=== PATIENT | male | born 1965 | race African-American/Black ===

== ENCOUNTER 2021-01-31 11:12 | Emergency (ER) | payer OTHER, MEDICARE ==
[~2021-01-31] VITALS: Ht 177.8 cm; Wt 77.1 kg
[~2021-01-31 11:12] MED LIST: BACLOFEN10 MG PO; CENTRAL VITE F1 EACH PO; GABAPENTIN100 MG PO; INDOMETHACIN50 MG PO; KEFLEX500 MG PO; LISINOPRIL10 MG PO; LORCET 5-325 M1 EACH PO; MOBIC7.5 MG PO; NORCO 5-325 TA1 EACH PO; PREDNISONE20 MG PO
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
[2021-01-31] MEDS ORDERED: ALLOPURINOL100 MG PO (13:02)
[2021-01-31] MEDS ORDERED: IBU600 MG PO (14:09)
== END 2021-01-31 14:43 | disposition home or self-care (01) ==
LOC: ED 11:12
DX: S83.91XA Sprain of unspecified site of right knee, initial encounter (principal); M54.5 Low back pain; V03.90XA Pedestrian on foot injured in collision with car, pick-up truck or van, unspecified whether traffic or nontraffic accident, initial encounter; I10 Essential (primary) hypertension; F17.200 Nicotine dependence, unspecified, uncomplicated; Z79.899 Other long term (current) drug therapy
CPT/HCPCS: 99283

== ENCOUNTER 2021-05-31 23:07 | Emergency (ER) | payer MEDICARE, OTHER ==
[~2021-05-31] VITALS: Ht 177.8 cm; Wt 74.8 kg
[~2021-05-31 23:07] MED LIST changes: +ALLOPURINOL100 MG PO; +IBU600 MG PO
[2021-06-01] MEDS ORDERED: PROTONIX40 MG PO (01:13)
== END 2021-06-01 01:23 | disposition home or self-care (01) ==
LOC: ED 23:07
DX: K29.00 Acute gastritis without bleeding (principal); I10 Essential (primary) hypertension; F17.200 Nicotine dependence, unspecified, uncomplicated
CPT/HCPCS: 80053; 81001; 83690; 85025; 99284

== ENCOUNTER 2022-02-27 16:34 | Emergency (ER) | payer OTHER ==
[~2022-02-27] VITALS: Ht 177.8 cm; Wt 73.4 kg
[~2022-02-27 16:34] MED LIST changes: +PROTONIX40 MG PO
[2022-02-27] MEDS ORDERED: ALLOPURINOL100 MG PO (17:33)
[2022-02-27] MEDS ORDERED: ZOLOFT50 MG PO (17:34)
--- NOTE | 2022-03-01 14:23 | EKG ---
[facility] [address] [place], [place] [address] Signed Normal sinus rhythm Left axis deviation Inferior infarct , age undetermined Abnormal ECG No previous ECGs available Confirmed by NICOLE HERMOSILLO MD ([id number]) on 03/01/2022 2:22:58 PM Electronically Signed By: NICOLE HERMOSILLO MD 03/01/221422 PATIENT NAME: RUBIO CHILDRESS Electrocardiogram DATE OF : 61 PHYSICIAN: NICOLE HERMOSILLO MD REPORT #: [id number] REPORT IS CONFIDENTIAL AND NOT TO BE RELEASED WITHOUT AUTHORIZATION
== END 2022-02-27 17:53 | disposition left against medical advice (07) ==
LOC: ED 16:34
DX: G45.9 Transient cerebral ischemic attack, unspecified (principal); F15.10 Other stimulant abuse, uncomplicated; I10 Essential (primary) hypertension; F17.200 Nicotine dependence, unspecified, uncomplicated; Z79.899 Other long term (current) drug therapy; Z20.822 Contact with and (suspected) exposure to COVID-19
CPT/HCPCS: 36415; 70450; 70496; 70498; 71045; 80053; 85025; 85060; 85610; 85730; 93005; 93010; 99285-25; A9270; C9803; G0480; U0003

== ENCOUNTER 2022-03-03 11:11 | Inpatient (IN) | payer MEDICARE, OTHER ==
[~2022-03-03] VITALS: Ht 177.8 cm; Wt 72.0 kg
[~2022-03-03 11:11] MED LIST changes: +ZOLOFT50 MG PO
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
--- NOTE | 2022-03-03 18:58 | NUR ---
CHAPIN IS LAYING IN BED WATCHING TV. I&O CHARTED VITALS CHARTED. CALL LIGHT WITHIN REACH. NO FURTHER TASKS AT THIS TIME.
--- NOTE | 2022-03-03 19:10 | NUR ---
REPORT RECEIVED FROM KEDAR JORGE. pt RESTING IN BED. CALL LIGHT IN REACH. pt DENIES ANY NEEDS AT THIS TIME.
--- NOTE | 2022-03-03 20:40 | NUR ---
pt RESTING IN BED AWAKE. ASSISTED TO RESOSITION IN BED. pt DENIES PAIN. ASSESSMENT COMPLETE. RIGHTS SIDED FACIAL DROOP, RIGHT ARM AND RIGHT LEG WEAKNESS NOTED. pt STATES SENSATION INTACT. ALERT AND ORIENTED TO ALL. DENTURES IN CUP. MRI FORM COMPLETE. VSS. HR SR ON TELE 3. CALL LIGHT IN REACH. pt DEMONSTRATES USE. URINAL NEXT TO pt PER REQUEST.
--- NOTE | 2022-03-03 21:47 | NUR ---
2 pa. LINKING MACHINE OPERATORKEDAR HERRON AND THIS MILK TESTER HELPED PATIENT GET UP TO USE THE BEDSIDE COMMODE. PATIENT HAS A SOFT SMALL BOWEL MOVEMENT. PATIENT ABLE TO PIVOT AND TOLERATED WELL. PATIENT IS BACK IN BED. WARM BLANKET PROVIDED. CALL LIGHT WITHIN REACH. BED ALARM ON FOR SAFETY.
--- NOTE | 2022-03-03 23:39 | NUR ---
CALL LIGHT ANSWERED. 2PA TO BSC FOR LOOSE BM, INCONTINENCE OF BM IN ATTENDS. SMALL UNMEASURED VOID MIXED WITH STOOL IN BSC. 2PA BACK TO BED. ATTENDS ON. CALL LIGHT IN REACH. ALL RAILS UP PER pt REQUEST. IVF INFUSING WNL.
--- NOTE | 2022-03-04 02:15 | NUR ---
pt SLEEPING, AWAKENS TO VOICE. DENIES TOILETING NEEDS. IVF INFUSING WNL. ASSESSMENT COMPLETE. NEURO CHECK UNCHANGED, pt WITH SLURRED SPEECH, RIGHT SIDED WEAKNESS. ALERT AND ORIENTED TO ALL. VSS. BLADDER SCAN >333 MLS AT THIS TIME, DENIES NEED TO VOID. URINAL IN REACH. CALL LIGHT NEXT TO pt.
--- NOTE | 2022-03-04 05:08 | NUR ---
CHECKED ON pt. RESTING IN BED WITH EYES CLOSED, BREATHING EQUAL AND UNLABORED. NO DISTRESS NOTED.
--- NOTE | 2022-03-04 06:16 | NUR ---
pt SLEEPING, AWAKENS TO VOICE. 100 ML VOID IN URINAL NOTED. pt INCONTINENT OF URINE AND BROWN SOFT/LIQUID STOOL. ATTENDS AND CHUX CHANGED, 2PA. VSS. IVF INFUSING WNL. CALL LIGHT IN REACH. BED ALARM ON FOR SAFETY.
--- NOTE | 2022-03-04 07:37 | NUR ---
Patient back from MRI at this time. Continuous IV fluids restarted per provider order. Bed alarm intact. Patient has no needs at this time. Personal supplies and call light within reach.
--- NOTE | 2022-03-04 08:18 | NUR ---
wilmer is in bed sitting up for meal. am cares done. call light within reach. no further tasks at this time.
--- NOTE | 2022-03-04 10:15 | NUR ---
Patient tachy at this time, heart rate 122bpm per tele. Patient sleeping at this time with no notable distress. TORB from Dr. Capellan to do a stat EKG at this time and vital signs. EKG order placed, RT notified.
--- NOTE | 2022-03-04 10:30 | NUR ---
Patient incontinent of stool. Jessica care done at this time.
--- NOTE | 2022-03-04 10:47 | NUR ---
Dr. Capellan updated on most recent vital signs.
--- NOTE | 2022-03-04 11:29 | NUR ---
Patient's heart rate increased to 141bpm per tele. In to see pt, patient attempting to void, appears to be bearing down as he voids. Bladder scan done, 301ml noted. Patient denies sob and or chest pain. Heart rate drecreased to 120's post void.
--- NOTE | 2022-03-04 13:12 | NUR ---
Moon placed using sterile technique. Urojet used for comfort. Immediate return of clear yellow urine noted. Patient tolerated well.
[2022-03-04] MEDS ORDERED: MOTRIN IB200 MG PO (14:25)
--- NOTE | 2022-03-04 14:28 | NUR ---
MED REC COMPLETE
--- NOTE | 2022-03-04 14:30 | NUR ---
CHAPIN IS LAYING IN BED WATCHING TV. I&OS AND VITALS HAVE BEEN CHARTED. CALL LIGHT WITHIN REACH. NO FURTHER TASKS AT THIS TIME.
--- NOTE | 2022-03-04 15:00 | NUR ---
Discussed pt with Qi from [facility] and then also with Momo from [facility]. Discussed possible placement and pts needs. I will call [facility] rehab to check if they would accept this pt with a homeless status. Momo suggest LU eval to see if this pt could qualify for penitentiary medicaid and placement. Called [facility] and left a message asking if they have this pt on any services and if he would qualify for penitentiary medicaid. Called and spoke with Rhina from [facility] rehab. They will have a bed open the beginning of next week. Depending on circumstances, they do accept pt's that are homeless, if they are willing to dc homeless when rehab is completed. She requests I send the chart.
--- NOTE | 2022-03-04 15:39 | EKG ---
[facility] [address] [place], [place] [address] Signed Sinus bradycardia Left axis deviation Inferior infarct (cited on or before 27-FEB-2022) Abnormal ECG When compared with ECG of 27-FEB-2022 17:17, No significant change was found Confirmed by NICOLE HERMOSILLO MD ([id number]) on 03/04/2022 3:39:13 PM Electronically Signed By: NICOLE HERMOSILLO MD 03/04/22 1539 PATIENT NAME: RUBIO CHILDRESS Electrocardiogram DATE OF : 61 PHYSICIAN: NICOLE HERMOSILLO MD REPORT #: [id number] REPORT IS CONFIDENTIAL AND NOT TO BE RELEASED WITHOUT AUTHORIZATION
--- NOTE | 2022-03-04 15:39 | EKG ---
[facility] [address] [place] [address] Signed Sinus tachycardia Left axis deviation Inferior-posterior infarct (cited on or before 27-FEB-2022) Abnormal ECG When compared with ECG of 03-MAR-2022 11:57, (Unconfirmed) Vent. rate has increased BY 64 BPM Confirmed by NICOLE HERMOSILLO MD ([id number]) on 03/04/2022 3:39:23 PM Electronically Signed By: NICOLE HERMOSILLO MD 03/04/22 1539 PATIENT NAME: RUBIO CHILDRESS Electrocardiogram DATE OF : 61 PHYSICIAN: NICOLE HERMOSILLO MD REPORT #: [id number] REPORT IS CONFIDENTIAL AND NOT TO BE RELEASED WITHOUT AUTHORIZATION
--- NOTE | 2022-03-04 16:53 | NUR ---
CASE MANAGEMENT NOTE CHART FAXED TO [facility] AFTER SPEAKING WITH ANISA. ANISA STATED THEY WILL HAVE A ROOM AVAILABLE NEXT WEEK AND WILL REVIEW CHART FOR PLACEMENT.
--- NOTE | 2022-03-04 18:12 | NUR ---
CHAPIN IS LAYING IN BED WATCHING TV. I&O AND VITALS CHARTED. CALL LIGHT IN REACH. NO FURTHER TASKS AT THIS TIME
--- NOTE | 2022-03-04 18:22 | NUR ---
Patient in bed eating dinner, no distress. Patient denies pain and or discomfort. No needs at this time, personal supplies and call light within reach.
--- NOTE | 2022-03-04 19:10 | NUR ---
REPORT RECEIVED FROM KEDAR PETTIT. pt RESTING IN BED WITH EYES CLOSED. BREATHING EQUAL AND UNLABORED. CALL LIGHT NEXT TO pt.
--- NOTE | 2022-03-04 21:30 | NUR ---
ASSISTED KEDAR BAKER. V/S AND I&O'S COMPLETED. JOE AND DUTTA CARE DONE. CHANGED CHUX AND ATTENDS WET FROM DUTTA LEAKING. ORAL CARE DONE. UPPER DENTURE SOAKED WITH CLEANSER IN A CONTAINER. WARM BLANKET PROVIDED. CALL LIGHT AND SIDE TABLE CLOSED BY. BED ALARM ON FOR SAFETY.
--- NOTE | 2022-03-04 21:39 | NUR ---
pt SLEEPING, AWAKENS TO VOICE. ALERT AND ORIENTED TO ALL. ASSESSMENT COMPLETE. RIGHT SIDED WEAKNESS, SLURRED SPEECH NOTED. DUTTA CARE COMPLETE. DUTTA CATHETER LEAKING URINE. BALLOON REINFLATED, 9 MLS NOTED IN BALLOON. ATTENDS CHUX AND GOWN CHANGED, PARTIAL BED BATH. ASSISTED TO REPOSITION. ORAL CARE COMPLETE. CRANBERRY JUICE PROVIDED. PO FLUIDS ENCOURAGED. pt DEMONSTRATES BEDDING CONTROLS, CALL LIGHT. IV SITE FLUSHED WNL, SL. CALL LIGHT IN REACH.
--- NOTE | 2022-03-04 23:40 | NUR ---
CHECKED ON pt. RESTING IN BED WITH EYES CLOSED. NO DISTRESS NOTED. DUTTA DRAINING YELLOW/ORANGE URINE.
--- NOTE | 2022-03-05 01:54 | NUR ---
CHECKED ON pt. RESTING IN BED WITH EYES CLOSED. BREATHING UNLABORED. HR 71, SR ON TELE 3. DUTTA DRAINING YELLOW URINE.
--- NOTE | 2022-03-05 04:22 | NUR ---
CHECKED ON pt, RESTING IN BED, EYES CLOSED, BREATHING UNLABORED. HR 85 ON TELE 3, SR. NO DISTRESS NOTED.
--- NOTE | 2022-03-05 06:10 | NUR ---
pt AWAKENS TO VOICE. ATTENDS DRY. ASSESSMENT COMPLETE. NEURO CHECK UNCHANGED. pt ASSISTED TO REPOSITION IN BED. PILLOW UNDER RIGHT HIP, BETWEEN LEGS. DUTTA EMPTIED. VSS. CALL LIGHT IN REACH.
--- NOTE | 2022-03-05 08:30 | NUR ---
REPORT RECEIVED FROM NIGHT RN AND PT. CARE RESUMED. PT. IS ALERT AND ORIENTED TO ALL. HE DENIES PAIN. RIGHT SIDE WEAKNESS IN RUE AND RLE. RIGHT FACIAL DROOP AND SLURRING PRESENT. PT. AMBULATED WITH 2PA, FWW AND WAS UNSTEADY WITH RIGHT FOOT DRAG. IV WNL AND FLUSHES WELL. DISCUSSED SAFETY, SHOWER, MEDS, AND POC. LEFT RESTING WITH CALL LIGHT IN REACH.
--- NOTE | 2022-03-05 09:42 | NUR ---
CHAPIN IS UP IN CHAIR. VITALS AND I&O CHARTED. CALL LIGHT WITHIN REACH. NO FURTHER TASKS AT THIS TIME
--- NOTE | 2022-03-05 10:10 | NUR ---
TELEMETRY SHOWS HR IS 150'S. IN THE ROOM. ADMIN TWO DOSES OF IVP LOPRESSOR, 5MG. EKG PERFORMED. HR DOWN TO 110'S. OTHER VITALS STABLE. 2PA AND FWW TO AMBULATE FROM CHAIR TO BED. WILL CONTINUE TO MONITOR. PT. LEFT RESTING WITH CALL LIGHT IN REACH.
--- NOTE | 2022-03-05 10:54 | NUR ---
Pravint got a bed bath. after the pravint asked for pudding. call light within reach. no further tasks at this time.
--- NOTE | 2022-03-05 13:15 | NUR ---
CHAPIN IS LAYING IN BED WATCHING TV. I&O AND VITALS CHARTED. CALL LIGHT WITH IN REACH. NO FURTHER TASKS AT THIS TIME
--- NOTE | 2022-03-05 14:00 | NUR ---
Received phone message from Rhina at [facility] rehab. They declined this pt. due to his meth use and homelessness.
--- NOTE | 2022-03-05 14:15 | NUR ---
PT ASLEEP, DID NOT DISTURB. WILL FOLLOW
--- NOTE | 2022-03-05 15:34 | NUR ---
ROUNDING ON PT. HE IS RESTING IN BED AND DENIES PAIN. PT. BROUGHT PUDDING AND ASSISTED WITH REPOSITIONING. LEFT RESTING WITH CALL LIGHT IN REACH.
--- NOTE | 2022-03-05 19:10 | NUR ---
SHIFT REPORT RECEIVED FROM CHEIKH HUA AT BEDSIDE. pt AWAKE AND RESTING IN BED, ASPIRATION PRECAUTIONS IN PLACE WITH HOB ELEVATED. NO NEEDS OR CONCERNS VERBALIZED, CALL LIGHT IN REACH. BED ALARM REMAINS ON FOR SAFETY.
--- NOTE | 2022-03-05 20:25 | NUR ---
call light on, pt requests strawberry milk, rn to be in room shortly, vitals taken, charles emptied, no further needs at this time
--- NOTE | 2022-03-05 20:45 | NUR ---
ASSESSMENT COMPLETE, SCHEDULED PO OPRESSOR CRUSHED AND ADMINISTERED WITH PUDDING- SEE EMAR. NO ISSUES SWALLOWING NOTED, pt ALREADY ASSESSED BY [facility] [place] ELEVATED AND ASPIRATION PRECAUTIONS IN PLACE. GREATER WEAKENSS TO RIGHT SIDE COMPARED TO LEFT SIDE. RIGHT SIDED DROOP REMAINS NOTED, pt SPEAKS VERY QUIET AND SOFT. SOME SLURRED SPEECH REMAINS NOTED- NO CHANGE SINCE START OF SHIFT. CATHET PATENT, CATH CARE DONE. DRY ATTENDS IN PLACE. pt ABLE TO ASSIST WITH POSTION CHANGES. NO FURTHER NEEDS, CALL LIGHT IN REACH. BED ALARM ON FOR SAFETY.
--- NOTE | 2022-03-05 23:38 | NUR ---
pt RESTING IN BED, EYES CLOSED. RR EVEN AND UNLABORED. NO DISTRESS NOTED. REMAINS ON RA, TELE#[address], HR 60'S SINUS RHYTHM. CALL LIGHT REMAINS IN REACH AND BED ALARM ON FOR SAFETY.
--- NOTE | 2022-03-06 00:15 | NUR ---
IN TO PROVIDE PT WITH SOME CRANBERRY JUICE PER REQUEST, PT ALSO ABLE TO REPOSITION SELF A LITTLE AND WILL CALL IF MORE ASSISTANCE NEEDED, NO FURTHER NEEDS AT THIS TIME
--- NOTE | 2022-03-06 01:42 | NUR ---
pt RESTING IN BED WITH EYES CLOSED, RR EVEN AND UNLABORED. NO DISTRESS NOTED, TELE#[address] HR RANGING FROM 59BPM TO MID/UPPER 60'S BPM. NO DISTRESS NOTED. CALL LIGHT IN REACH.
--- NOTE | 2022-03-06 02:00 | NUR ---
IN TO CHECK BP/HR/RR FOR RN, RESULTS PROVIDED TO RN, PT IS COMORTABLE WITH POSITIONING, NO FURTHER NEEDS AT THIS TIME
--- NOTE | 2022-03-06 02:22 | NUR ---
SCHEDULED PO CARDIAC MEDICATION GIVEN, SEE EMAR. MED CRUSHED AND GIVEN W/ PUDDING. NO ISSUES SWALLOWING NOTED. ASSESSMENT FINDINGS UNCHANGED, VSS. TELE#3 SR, HR REGULAR WITH AUSCULTATION, RATE 60'S. CMS INTACT, pt ABLE TO TELL WHICH SIDE IS BEING TOUCHED REGARDING BUE AND BLE W/ SENSATION. WEAKNSS REMAINS NOTED ON RIGHT SIDE. PUPILS ROUND AND REACTIVE/EQUAL TO LIGHT. BED ALARM ON FOR SAFETY, pt SIISTED WITH REPOSITIONING, BUT ALSO ABLE TO CHANGE POSITIONS ON OWN. CALL LIGHT IN REACH.
--- NOTE | 2022-03-06 02:36 | NUR ---
2G SODIUM DIET ADDED TO CURRENT DIET ORDER PER MD ORDERS UNDER SWALLOW EVAL. GAS TRUCK DRIVERKEDAR LAFLEUR UPDATED.
--- NOTE | 2022-03-06 04:26 | NUR ---
pt AWAKE AND RESTING IN BED, ON RA. RR EVEN AND UNLABORED. NO DISTRESS NOTED. pt CURRENTLY RESTING ON HIS RIGHT SIDE IN BED. DENIES NEED FOR ASSISTANCE REGARDING POSTION CHANGES AT THIS TIME, CALL LIGHT IN REACH.
--- NOTE | 2022-03-06 05:50 | NUR ---
IN TO GET VITALS, EMTIED DUTTA, REPOSITIONED PILLOWS TO BOTH HIPS, STRAWBERRY ENSURE PROVIDED, FRESH ICE WATER WELL, BED ALARM IN PLACE, NO FURTHER NEEDS AT THIS TIME
--- NOTE | 2022-03-06 05:58 | NUR ---
ROUNDED ON pt, pt BOOSTED IN BED AND ASSISTED WITH FLOATING HIPS. BED ALARM RESUMED. FOREHEAD AGAIN DIAPHORETIC, BUT pt REMAINS AFEBRILE. OTHER VSS, HR INCREASED AT THIS TIME AND TACHY, HR CURRENTLY 104-108 ON TELE#3- SINUS TACH. NO CHANGES TO OVERALL pt APPEARANCE. NO ACUTE CHANGES NOTED WITH NEURO CHECK- WILL CONTINUE TO MONITOR. CALL LIGHT IN REACH.
--- NOTE | 2022-03-06 08:50 | NUR ---
Called and left a message with [facility] requesting their fax number as per [facility], they will accept pts who have substance abuse.
--- NOTE | 2022-03-06 09:00 | NUR ---
REPORT RECEIVED FROM NIGHT RN AND PT. CARE RESUMED. PT IS ALERT AND ORIENTED TO ALL. DENIES PAIN. 2PA WITH FWW FROM BED TO CHAIR AND IS UNSTEADY WITH RIGHT FOOT DRAG. RIGHT SIDE WEAKNESS IN RUE AND RLE REMAIN UNCHANGED. RIGHT FACIAL DROOP PRESENT. IV WNL AND FLUSHES. DISCUSSED POC, SAFETY AND MEDS. LEFT RESTING WITH CALL LIGHT IN REACH.
--- NOTE | 2022-03-06 09:34 | NUR ---
PT. ASSISTED WITH ANSWERING PHONE AND CLEARING LUNCH TRAY.
--- NOTE | 2022-03-06 10:06 | NUR ---
PATIENT AWAKE IN CHAIR. VITALS AND I&OS CHARTED. DUTTA EMPTIED. 2PA WITH GAIT BELT AND FWW PATIENT BACK TO BED PER REQUEST. PILLOW UNDER R ARM, WASHCLOTH IN R HAND. BOTH BED RAILS UP PER PATIENT REQUEST. CALL LIGHT AND PERSONAL PHONE IN EASY REACH
--- NOTE | 2022-03-06 10:40 | NUR ---
Faxed Face sheet, covid test,progress notes, H&P, med list, PT/OT/ST notes to [facility] in [place] and [facility] in [place]. Pt has been declined by [facility], [facility], and [facility]. [facility] does not have rooms.
--- NOTE | 2022-03-06 11:01 | NUR ---
TELEMETRY REMOVED PER ORDER. PT. DENIES NEEDS AT THIS TIME. DUTTA ADJUSTED PT. WAS LYING ON IT. LEFT RESTING WITH CALL LIGHT IN REACH.
--- NOTE | 2022-03-06 12:00 | NUR ---
Spoke with Gilbert. Updated IP rehab declined placement. I have sent his chart to SNFs in the state requesting placement for rehab, but have not received any replys. He states he is willing to go wherever to get placement for rehab.
--- NOTE | 2022-03-06 12:20 | NUR ---
PT LAYING IN BED, PREAKS VERY QUIETLY, BUT ANSWERS ON POINT. PT VERY POLITE, FACIAL DROOP NOTED. GAVE ENCOUAGEMENT, PRAYED WITH PT. WILL FOLLOW
--- NOTE | 2022-03-06 12:40 | NUR ---
Attempted to call [facility] x 2 and unable to reach to set up phone eval.
--- NOTE | 2022-03-06 13:15 | EKG ---
[facility] [address] [place], [place] [address] Signed Sinus tachycardia Left axis deviation Inferior infarct (cited on or before 27-FEB-2022) Abnormal ECG When compared with ECG of 05-MAR-2022 08:59, (Unconfirmed) Serial changes of Inferior infarct present Confirmed by NICOLE HERMOSILLO MD ([id number]) on 03/06/2022 1:15:21 PM Electronically Signed By: NICOLE HERMOSILLO MD 03/06/22 1315 PATIENT NAME: RUBIO CHILDRESS Electrocardiogram DATE OF : 61 PHYSICIAN: NICOLE HERMOSILLO MD REPORT #: [id number] REPORT IS CONFIDENTIAL AND NOT TO BE RELEASED WITHOUT AUTHORIZATION
--- NOTE | 2022-03-06 13:15 | EKG ---
[facility] [address] [place], [place] [address] Signed Sinus tachycardia Inferior infarct (cited on or before 27-FEB-2022) Abnormal ECG When compared with ECG of 04-MAR-2022 09:06, No significant change was found Confirmed by NICOLE HERMOSILLO MD ([id number]) on 03/06/2022 1:15:14 PM Electronically Signed By: NICOLE HERMOSILLO MD 03/06/22 1315 PATIENT NAME: RUBIO CHILDRESS Electrocardiogram DATE OF : 61 PHYSICIAN: NICOLE HERMOSILLO MD REPORT #: [id number] REPORT IS CONFIDENTIAL AND NOT TO BE RELEASED WITHOUT AUTHORIZATION
--- NOTE | 2022-03-06 13:15 | EKG ---
[facility] [address] [place], [place] [address] Signed Sinus tachycardia Inferior infarct (cited on or before 27-FEB-2022) Abnormal ECG When compared with ECG of 05-MAR-2022 08:56, (Unconfirmed) No significant change was found Confirmed by NICOLE HERMOSILLO MD ([id number]) on 03/06/2022 1:15:18 PM Electronically Signed By: NICOLE HERMOSILLO MD 03/06/22 1315 PATIENT NAME: RUBIO CHILDRESS Electrocardiogram DATE OF : 61 PHYSICIAN: NICOLE HERMOSILLO MD REPORT #: [id number] REPORT IS CONFIDENTIAL AND NOT TO BE RELEASED WITHOUT AUTHORIZATION
--- NOTE | 2022-03-06 14:45 | NUR ---
VITALS AND I&OS CHARTED. PATIENT EATING PUDDING, ABLE TO FEED HIMSELF WITH LEFT HAND WITH LITTLE ASSISTANCE. CALL LIGHT IN EASY REACH
--- NOTE | 2022-03-06 14:55 | NUR ---
Spoke with Kimi Prakash. She is unable to speak with Gilbert today as she has appointment at 3 pm. She asks I call after 0830 am on Wednesday.
--- NOTE | 2022-03-06 15:13 | NUR ---
PT. ASSISTED BY 2 STAFF AND FWW TO BSC. SMALL BM SMEAR. PT. ASSISTED BACK TO BED AND LEFT RESTING WITH CALL LIGHT IN REACH.
--- NOTE | 2022-03-06 17:03 | NUR ---
PT. USED CALL LIGHT APPROPRIATELY FOR ASSISTANCE TO BSC. PIVOTED FROM BED TO BSC WITH 2PA AND FWW. TOLERATED WELL AND HAD A LARGE BM. ASSISTED TO CHAIR. LEFT RESTING WITH CALL LIGHT IN REACH.
--- NOTE | 2022-03-06 19:00 | NUR ---
SHIFT REPORT RECEIVED FROM DAYSHIFT RN MELITA AT BEDSIDE. pt RESTING QUIETLY IN BED, AWAKE. DENIES NEEDS OR CONCERNS. ON RA, RR EVEN AND UNLABORED. BED ALARM ON FOR SAFETY AND CALL LIGHT IN REACH. BOARD UPDATED.
--- NOTE | 2022-03-06 20:05 | NUR ---
in to get vitals, ensure provided, boosted pt in bed with rn, no further needs at this time
--- NOTE | 2022-03-06 20:17 | NUR ---
ASSESSMENT COMPLETE, SCHEDULED CARDIAC MED GIVEN (SEE EMAR). VSS, HR TACHY AT 105, REGULAR WITH AUSCULTATION. NICOTINE PATCH ALSO REMOVED. BED ALARM ON FOR SAFETY AND CALL LIGHT IN REACH. MED GIVEN WHOLE AND SWALLOWED EASILY. NEURO ASSESSMENT COMPLETE, pt A/OX4. WEAKNESS TO RIGHT SIDE REMAISN NOTED ALONG WITH RIGHT FACIAL DROOP AND SOME SLURRED SPEECH. pt SPEAKS VERY QUIET AT BASELINE. SNACK PROVIDED AND HOB ELEVATED. NO FURTHER NEEDS AT THIS TIME. DUTTA CATHETER REMAISN PATENT, CATH CARE RECENTLY DONE BY ALF CASTRO.
--- NOTE | 2022-03-06 23:30 | NUR ---
ROUNDED ON pt, pt AWAKE AND RESTING IN BED. ON RA, RR EVEN AND UNLABORED. DENIES NEEDS OR CONCERNS AT THIS TIME, CALL LIGHT IN REACH AND BED ALARM ON FOR SAFETY.
--- NOTE | 2022-03-07 01:40 | NUR ---
IN TO CHECK ON PT, PT WAS TURNING OVER AND SET OFF ALARM, ENSURE PROVIDED, NO FURTHER NEEDS
--- NOTE | 2022-03-07 02:13 | NUR ---
pt CONITNUES TO REST IN BED, EYES CLOSED. RR EVEN AND UNLABORED. NO DISTRESS NOTED. CALL LIGHT IN REACH. BED ALARM REMAISN ON FOR SAFETY.
--- NOTE | 2022-03-07 03:08 | NUR ---
ROUNDED ON pt, pt RESTING QUIETLY IN BED, AWOKE TO VOICE. DENIES NEEDS, BED ALARM REMAINS ON. DUTTA CATHETER PATENT, VOIDING QS. pt FULLY ORIENTED, DENIES PAIN AND NAUSEA. NO FURTHER NEEDS OR CONCERNS VERBALIZED, WILL CONITNUE TO MONITOR. HR WNL, REGULAR WITH AUSCULTATION.
--- NOTE | 2022-03-07 06:11 | NUR ---
VSS AND I&O'S COMPLETE. BED ALARM ON FOR SAFETY AND CALL LIGHT IN REACH. NO SKIN BREAKDOWN NOTED TO BUTTOCKS, pt ABLE TO REPOSITION SELF IN BED. NO CHANGES TO NEURO ASSESSMENT.
--- NOTE | 2022-03-07 09:30 | NUR ---
Patient awake sitting up eating breakfast, no acute distress. Patient reports he slept well last night. No pain or nausea at this time. Patient denies needs at thist time. Close to RN station. Personal supplies and call light within reach.
--- NOTE | 2022-03-07 12:50 | NUR ---
Patient assisted to bed from chair, 2PA with walker. Patient's strength appears to be improving a bit. Right upper/lower ext's remain weak. Fresh water at bedside. Personal supplies and call light within reach.
--- NOTE | 2022-03-07 15:08 | NUR ---
Patient in bed resting, eyes closed, respirations even and non labored. No notable distress. Personal supplies and call light within reach.
--- NOTE | 2022-03-07 17:58 | NUR ---
Patient repositioned at this time. Patient reports he is doing well, no pain or needs. Ensure provided at this time. Moon intact/patent with clear yellow urine noted. Close to RN station. Personal supplies and call light within reach.
--- NOTE | 2022-03-07 19:00 | NUR ---
SHIFT REPORT RECEIVED FROM DAYSHIFT KEDAR PETTIT AT BEDSIDE. pt AWAKE AND RESTING IN BED, ON RA. RR EVEN AND UNLABORED, NO DISTRESS NOTED. NO NEEDS OR CONCERNS VERBALIZED AT THIS TIME. CALL LIGHT IN REACH.
--- NOTE | 2022-03-07 19:50 | NUR ---
in to get vitals, charles emptied aand care done
--- NOTE | 2022-03-07 20:14 | NUR ---
ASSESSMENT COMPLETE, SCHEDULED LOPRESSOR GIVEN. COUGH X1 NOTED, pt EDUCATED TO TAKE HIS TIME WELL EDUCATED ON OTHER TECHNIQUES FOR IMPROVED SWALLOWING SUCH TUCKING CHIN AND KEEP HOB ELEVATED, pt VERBALIZED UNDERSTANDING. LUNG SOUNDS REMAIN UNCHANGED BEFORE AND AFTER, NO DISTRESS. pT DENEIS PAIN AND NAUSEA, BOWEL TONES ACTIVE. IV SITE WNL, FLUSHES EASILY AND HAS NEW ALCOHOL CAP IN PLACE- SALINE LOCKED. SENSATION INTACT, pt DENEIS NUMBNESS AND TINGLING. BED ALARM ON FOR SAFETY, STRENGTH TO RIGHT SIDE IMPROVING. NO FURTHER NEEDS OR CONCERNS, CALL LIGHT IN REACH. CATH CARE DONE BY THIS RN.
--- NOTE | 2022-03-07 22:52 | NUR ---
pt RESTING IN BED, LAYING ON HIS LEFT SIDE FACING WINDOW. ON RA, RR EVEN AND UNLABORED. NO DISTRESS NOTED, CALL LIGHT IN REACH AND BED ALARM ON.
--- NOTE | 2022-03-08 00:47 | NUR ---
pt CONTINUES TO REST IN BED WITH EYES CLOSED. ON RA, RR EVEN AND UNLABORED. NO DISTRESS NOTED. BED ALARM REMASIN ON FOR SAFETY AND CALL LIGHT IN REACH.
--- NOTE | 2022-03-08 02:14 | NUR ---
ROUNDED ON pt, pt RESTING ON HIS RIGHT SIDE. STRAWBERRY ENSURE FULLY DRANK, pt DENIES NAUSEA AND PAIN. BOWEL TONES ACTIVE. NO CAHNGES TO NEURO ASSESSMENT, CMS REMAINS INTACT. BED ALARM ON AND DUTTA IS PATENT. pt DENIES NEED WITH ASSISTANCE R/T REPOSITON. CALL LIGHT IN REACH.
--- NOTE | 2022-03-08 05:40 | NUR ---
VSS AND I&O'S COMPLETE. STRAWBERRY ENSURE PROVIDED, pt DENIES ISSUES SWALLOWING. BED ALARM ON FOR SAFETY. NEURO ASSESSMENT UNCHANGED. CALL LIGHT IN REACH.
--- NOTE | 2022-03-08 05:40 | NUR ---
in to vet vitals with rn, charles emptied, ensure provided, no further needs
--- NOTE | 2022-03-08 07:10 | NUR ---
Report received from Buffy THACKER. Pt resting in bed with eyes closed, even and unlabored RR, no needs identified at this time. Call light in reach, visible from nurses station. Will cont plan of care.
--- NOTE | 2022-03-08 07:45 | NUR ---
patient sitting in the bed, warm wash cloth offered. patient states he wants to wait for breakfast to come before he get up. Call light with in reach. no further needs at this time.
--- NOTE | 2022-03-08 08:30 | NUR ---
patient got up to the chair for breakfast, call light with in reach. ALF gomez help with the transfer. no further needs at this time.
--- NOTE | 2022-03-08 08:45 | NUR ---
Scheduled medications administered, pt sitting up to chair eating breakfast. He states no pain at this time. Noted R side weakness, slight R facial droop, pt A+O and verbalizes understanding of medication administration. On room air, LUCILA, melvin patent. LSC, HRR, Bowel tones active. Pt uses call light appropriately.
--- NOTE | 2022-03-08 10:30 | NUR ---
Rounded on patient who is resting in bed watching tv. Even and unlabored RR on room air. No needs at this time, call light in reach.
--- NOTE | 2022-03-08 11:45 | NUR ---
patient went to the chair for lunch. call light with in reach. no further needs at this time.
--- NOTE | 2022-03-08 12:45 | NUR ---
patient went back the bed after he finished with his lunch. KEDAR Arias helped me with transfer. call light with in reach. no further needs at this time.
--- NOTE | 2022-03-08 13:05 | NUR ---
Physical therapy working with patient.
--- NOTE | 2022-03-08 14:10 | NUR ---
vitals are done on the patient. water refreshed. call light with in reach. no further needs at this time.
--- NOTE | 2022-03-08 16:45 | NUR ---
Scheduled medications administered and assessment of patient complete. Noted flat affect- pt states "had a good day" and has no complaints of pain or discomfort. Noted R weakness primarily in RUE, R droop appears resolved at this time, pt requiring 2PA pivot assist. Assessment otherwise remains unchanged and WNL. A+O. Moon patent. This RN sits at bedside to discuss any patient concerns/questions, he states has none. Call light in reach, in view of nurses station.
--- NOTE | 2022-03-08 19:00 | NUR ---
SHIFT REPORT RECEIVED FROM DAYSHIFT KEDAR MOREJON AT BEDSIDE. pt AWAKE AND RESTING IN BED, WATCHING TV. ON RA, RR EVEN AND UNLABORED. NO NEEDS OR CONCERNS VERBALIZED, CALL LIGHT IN REACH.
--- NOTE | 2022-03-08 21:15 | NUR ---
CALL LIGHT ANSWERED. ENSURE PROVIDED REQUESTED. NO ADDITIONAL NEEDS. pt SITTING UP IN BED WATCHING TV.
--- NOTE | 2022-03-08 21:41 | NUR ---
ASSESSMENT COMPLETE, MEDS GIVEN WITHOUT ISSUE. pt A/X4, WATCHING TV IN BED. DRINKING ENSURE PER pt REQUEST. RIGHT SIDED WEKANESS REMASIN, BUT APPEARS TO BE IMPROVING. CMS INTACT, DENIES NUMBNESS AND TINGLING. pt HAS FLAT AFFECT. FAINT RIGHT DROOP, SPEAKS SOFT AND QUIETLY. NO FURTHER NEEDS, CALL LIGHT INR EACH. CATH CARE DONE.
--- NOTE | 2022-03-08 23:16 | NUR ---
pt AWAKE AND RESTING IN BED, ON RA. RR EVEN AND UNLABORED. NO DISTRESS NOTED. DUTTA CATHETER PATENT, NOT EMPTIED BUT THERE APPEARS TO BE APPROX 200MLS IN COLLECTION BAG. WILL CONTINUE TO MONITOR. CALL LIGHT IN REACH.
--- NOTE | 2022-03-09 00:41 | NUR ---
pt RESTING IN BED WITH EYES CLOSED. RR EVEN AND UNLABORED. NO DISTRESS NOTED. CALL LIGHT IN REACH.
--- NOTE | 2022-03-09 03:20 | NUR ---
ASSESSMENT COMPLETE, NO ACUTE CHANGES. NO CAHNGES TO NEURO ASSESSMENT, JUICE PROVIDED PER pt REQUEST. pt DENEIS PAIN AND NAUSEA, CALL LIGHT IN REACH.
--- NOTE | 2022-03-09 05:45 | NUR ---
pt AWAKE AND RESTING IN BED, ASSISTED pt WITH BOOST IN BED WITH HELP FROM ALF GRIGGS. ANSON DISPATCHER ELECTRIC POWER IN ROOM COLLECTING VS, IS AT BEDSIDE AND pt DEMONSTRATED USE. CALL LIGHT IN REACH.
--- NOTE | 2022-03-09 07:15 | NUR ---
Report received from Buffy, patient resting in bed with eyes closed, even and unlabored respirations on RA. No needs identified, call light in reach, will continue plan of care.
--- NOTE | 2022-03-09 08:10 | NUR ---
wilmer is laying in bed. am cares done independent with set up help from HOOK TENDER. call light within reach no further tasks at this time.
--- NOTE | 2022-03-09 08:40 | NUR ---
Scheduled medications administered and assessment complete. Pt resting in bed, A+O. Neuro check shows 3-4/5 strength on R side- UE and LE. CMS intact. Gross movement noted on R side, L side normal strength. Pt on RA, LSC. HRR. bowel tones active- last BM 03/06, NIO bowel regimen initiated. Skin intact. IV flushed WNL with brisk blood return noted. Pt repositioned in bed for breakfast- plan to work with physical therapy today. Moon draining WNL. Call light in reach.
--- NOTE | 2022-03-09 08:54 | NUR ---
CASEMANAGEMENT NOTE: THE [facility] CALLED AND STATES THEY MAY BE ACCEPTING PTS LATER THIS WEEK. UPDATED FACE SHEET, PROGRESS NOTES, PT/OT/ST NOTES, COVID/FLU LABS AND MEDICATION LIST FAXED TO THE [facility]. AWAITING RESPONSE.
--- NOTE | 2022-03-09 09:47 | NUR ---
CHAPIN IS LAYING IN BED. I&O AND VITALS CHARTED. NO FURTHER TASKS AT THIS TIME
--- NOTE | 2022-03-09 10:02 | NUR ---
Notified by SHAKE PACKER of patient temp 100.0. Assessed patient and administered PRN tylenol, will continue to monitor temperature and pt status
--- NOTE | 2022-03-09 11:00 | NUR ---
Was able to reach Kimi Prakash and she states she will be able to speak with Gilbert for an eval at 1:30 today. Informed I will call her from his room so he may speak with her.
--- NOTE | 2022-03-09 12:05 | NUR ---
Reassessed patient fever at 99.7, given cornet and I.S. and provided education, pt verbalizes and demonstrates learning and competency. Practiced several times. Pt sitting up to chair at this time.
--- NOTE | 2022-03-09 13:00 | NUR ---
Updated Dr Weaver on patient status. Per MD okay to leave IV in place while site intact, no infiltration, redness etc. Flushes well with brisk blood return noted. Dressing C/D/I.
--- NOTE | 2022-03-09 13:15 | NUR ---
Pt resting in bed after lunch. Discussed plan for shower- pt states he would like to take a nap first as he "did not sleep well" last night. Allowed to rest undisturbed at this time, made plan for shower before dinner. Call light in reach.
--- NOTE | 2022-03-09 13:18 | NUR ---
CHAPIN IS LAYING IN BED TO REST FOR AWHILE . CHAPIN WANTS TO GET UP AND SHOWER BEFORE DINNER. VITALS AND I&O CHARTED. CALL LIGHT WITHIN REACH, NO FURTHER TASKS AT THIS TIME.
--- NOTE | 2022-03-09 13:35 | NUR ---
Called Kimi from pts room phone and gave the pt the phone to answer the questions. I returned 30 minutes later and call has finished. Pt states [facility] will call him back tomorrow at 1 pm. When I returned to my office I received a message to call Kimi. Called and she states they will be calling tomorrow to complete an assessment. She states they will call the hospital and request his room. Let her know he may or may not be able to answer the phone. I gave her my cell and they will call me at 1 PM and I will assist him to answer the phone.
--- NOTE | 2022-03-09 15:40 | NUR ---
Rounded on patient who is resting in bed with eyes closed. Allowed to rest undisturbed at this time. RR even and unlabored on RA.
--- NOTE | 2022-03-09 15:49 | NUR ---
Vit D administered. Pt requests lidocaine cream to stomach and new ice packs given. Pt has no other needs at this time. Mother at bedside, attentive to patient. Call light in reach.
--- NOTE | 2022-03-09 17:22 | NUR ---
Scheduled medication administered, strawberry ensure requested from dietary as patient did not enjoy dinner. Pt would like to shower after dinner. ALF Pabon in room to assist with VS/I/Os.
--- NOTE | 2022-03-09 18:26 | NUR ---
CHAPIN GOT IN SHOWER AFTER DINNER. RN AND STUDENT PRESENT DURING SHOWER . I&O AND VITALS ARE CHARTED.
--- NOTE | 2022-03-09 18:32 | NUR ---
Assisted patient with shower, able to pivot to shower chair with 2PA. Oral care, charles care, lotion provided. Fresh linens and gown provided. Pt states after shower "feels better", conversational with nurses and expresses gratitude for staff. Back to bed, repositioned in bed, pt drowsy and wishes to sleep. Call light in reach.
--- NOTE | 2022-03-09 19:50 | NUR ---
REPORT RECEIVED FROM DAY SHIFT RN. PT LYING IN BED RESTING WITH EYES CLOSED. RESPIRATIONS EVEN. WHITE BOARD UPDATED. CALL LIGHT IN REACH.
--- NOTE | 2022-03-09 21:30 | NUR ---
VS AND IS AND OS COMPLETE. DUTTA CARE COMPLETE BY ALF GRIGGS. pt PROVIDED WITH ENSURE PER REQUEST. CALL LIGHT IN REACH.
--- NOTE | 2022-03-09 22:12 | NUR ---
EVENING ASSESSMENT COMPLETE. SCHEDULED MEDS ADMIN PER EMAR. NO SWALLOWING ISSUES OR COUGHING NOTED. PT DENIES PAIN OR NAUSEA. SLIGHT RIGHT SIDE FACIAL DROOP AND RIGHT SIDE WEAKNESS NOTED. PT DENIES HEADACHE OR BLURRED VISION. DUTTA PATENT WITH YELLOW URINE. ASSISTED PT TO REPOSITION IN BED. DENIES QUESTIONS OR CONCERNS. CALL LIGHT IN REACH.
--- NOTE | 2022-03-10 00:58 | NUR ---
PT RESTING IN BED WITH EYES CLOSED. RESPIRATIONS EVEN. CALL LIGHT IN REACH. BED ALARM FOR SAFETY.
--- NOTE | 2022-03-10 03:21 | NUR ---
IN TO REPOSITION PT IN BED. TEMP NOTED 101.1. EXTRA BLANKETS REMOVED. PT USE INCENTIVE SPIROMETER SEVERAL TIMES. TEMP BACK TO 99.9. PRN TYLENOL ADMIN PER EMAR. PT DENIES FURTHER NEEDS. CALL LIGHT IN REACH.
--- NOTE | 2022-03-10 06:01 | NUR ---
VS AND I&O COMPLETE. PT AFEBRILE. DUTTA PATENT WITH QS CONCENTRATED URINE. PT DENIES NEEDS. CALL LIGHT IN REACH.
--- NOTE | 2022-03-10 07:10 | NUR ---
Report received from Paula THACKER. Pt resting in bed with eyes closed, respirations even and unlabored on room air. No needs identified at this time. Will continue plan of care.
--- NOTE | 2022-03-10 08:15 | NUR ---
Returned call from ALEC Schaefer/AD from yesterday. Again discussed I have not been able to place pt to any SNF for PT/OT rehab. Updated pt has a catheter, he is not incontinent of stool. His stroke has affected his R side and his speech can be difficulty to understand. I was able to assist him to speak with Kimi Prakash from [facility] yesterday for medicaid. Listed the SNFS; [facility], [facility], [facility] that have all declined this pt. I have not had a return call from [facility] and have not been able to contact [facility] in the [facility] in over a week. Momo states he will call anc check if these SNFS would be will to accept. I will also contact [facility] in [place] tomorrow. They were deemed a Covid SNF by the state, but will again be able to take pts without covid starting tomorrow. Pt has also been decline by [facility].
--- NOTE | 2022-03-10 08:45 | NUR ---
Pt uses call light to request BSC for BM. 2PA with FWW. Call light in reach.
--- NOTE | 2022-03-10 08:52 | NUR ---
Call light answered, pt assisted with transfer from BSC to chair with 2PA, FWW. Jessica care complete, charles care done, draining WNL. Pt eats 15% of breakfast, ensure provided. No other needs at this time. Call light in reach
--- NOTE | 2022-03-10 09:20 | NUR ---
CHAPIN IS SITTING UP IN CHAIR WATCHING TV. I&O AND VITALS CHARTED. CALL LIGHT WITHIN REAC, NO FURTHER TASKS AT THIS TIME
--- NOTE | 2022-03-10 10:03 | NUR ---
Scheduled medications administered, assessment complete. Pt ambulates back to bed with 2PA FWW and gait belt. Noted coarse, dim lung sounds on R side, pt encouraged to use I.S. and demonstrates ability. Able to take deep breaths/cough. Pt A+O, on room air. He is engaged with RNs and communicates well, faint R droop noted and progressively improving from admission, as well as strength.
--- NOTE | 2022-03-10 11:00 | NUR ---
Physical therapy in working with patient.
--- NOTE | 2022-03-10 12:45 | NUR ---
Rounded on patient who is resting in bed at this time, he states no needs, watching tv and napping intermittently. Pt on room air, no SOB. Using I.S. appropriately.
--- NOTE | 2022-03-10 13:24 | NUR ---
Evan is laying in bed watching tv. i&o and vitals charted. call light within reach. no further tasks at this time.
--- NOTE | 2022-03-10 13:52 | NUR ---
KEDAR ELENA INFORMED ME THAT SHE WOULD LIKE FOR ME TO CHECK ON PT. PT SITTING IN CHAIR, FORMING PRESS OPERATOR IN TO ASSIST MOMENTARILY. PT SOFT SPOKEN, ASKED HOW I WAS DOING. GAVE ENCOURAGEMENT-PT LET IT BE KNOWN HE WAS HUNGRY. LUNCH IS ON THE WAY, HAD PRAYER WITH PT. WILL FOLLOW
--- NOTE | 2022-03-10 15:30 | NUR ---
Reassessed patient temperature, 99.1. Pt drowsy. Requests ensure, provided. Pt allowed to rest at this time. Call light in reach.
--- NOTE | 2022-03-10 16:11 | NUR ---
Received message from Kimi Prakash requesting H&P, nursing notes, therapy notes, and medlist for Gilbert. They are attempting to schedule eval by Angi Flaherty in the hospital as pt is homeless. Spoke with Gilbert and [facility] completed for [facility]. Chart printed and faxed to [phone]. Per Kimi, Angi will visit pt sometime between and Wednesday to assess physical needs for care giving or placement services through medicaid.
--- NOTE | 2022-03-10 17:10 | NUR ---
RT COLLECTED RAPID COVID 19, RSV, AND FLU SWAB PER DR REQUEST USING IN HOUSE LAB WITH NO COMPLICATIONS AT THIS TIME.
--- NOTE | 2022-03-10 17:50 | NUR ---
Scheduled medications administered and assessment complete. Pt temperature reassessed- 99.8, PRN tylenol administered. Pt demonstrates I.S. and cornet use, he states no pain or SOB, no needs. Awaiting dinner. Call light in reach.
--- NOTE | 2022-03-10 18:15 | NUR ---
CHAPIN IS LAYING IN BED WATCHING TV. I&O AND VITALS CHARTED. CALL LIGHT WITHIN REACH, NO FURTHER TASKS AT THIS TIME
--- NOTE | 2022-03-10 19:35 | NUR ---
REPORT RECEIVED FROM DAY SHIFT RN. PT LYING IN BED RESTING WITH EYES CLOSED. RESPIRATIONS EVEN. HOB ELEVATED. WHITE BOARD UPDATED. CALL LIGHT IN REACH.
--- NOTE | 2022-03-10 21:54 | NUR ---
assisted primary RN MATT. PATIENT'S GOWN AND DRAW SHEET CHANGED. PATIENT REPOSITIONED AND BOOSTED UP IN BED. DUTTA CARE DONE.
--- NOTE | 2022-03-10 22:12 | NUR ---
EVENING ASSESSMENT COMPLETE. SCHEDULED MEDS ADMIN PER EMAR. PT DENIES PAIN OR NAUSEA. TEMP 99. INCENTIVE SPIROMETER USED. DUTTA PATENT WITH CLEAR YELLOW URINE. DUTTA CARE COMPLETE. LINENS CHANGED DUE TO SWEAT. PT ABLE TO ASSIST WITH REPOSITIONING. HOB ELEVATED. NO FURTHER NEEDS. CALL LIGHT IN REACH.
--- NOTE | 2022-03-11 00:10 | NUR ---
PT RESTING IN BED WITH EYES CLOSED. RESPIRATIONS EVEN. HOB ELEVATED. CALL LIGHT IN REACH.
--- NOTE | 2022-03-11 01:42 | NUR ---
TEMP 99.9. DR. PAGE ON FLOOR. NEW ORDERS RECEIVED. BLOOD CULTURES AND LACTIC ACID DRAWN BY MEHDI THACKER AND STUDENT NURSE. PT LALO WELL. KLEENEX ON BEDSIDE NOTED TO HAVE GREEN SPUTUM. PT WITH OCCASIONAL LOOSE SOUNDING COUGH. PT ALSO REPORTS BOTTOM RIGHT CANINE LOOSE AND NEEDS TO BE REMOVED. NO VISIBLE ABSCESS NOTED. PT ABLE TO REPOSITION SELF IN BED AND WASH FACE AND MOUTH. FRESH ICE WATER PROVIDED. NO FURTHER NEEDS.
--- NOTE | 2022-03-11 02:19 | NUR ---
IV ABX INFUSING WNL. PRN FOR GENERALIZED PAIN AND FEVER ADMIN PER EMAR. NO FURTHER NEEDS. CALL LIGHT IN REACH.
--- NOTE | 2022-03-11 04:45 | NUR ---
PT RESTING IN BED WITH EYES CLOSED. RESPIRATIONS EVEN. CALL LIGHT IN REACH.
--- NOTE | 2022-03-11 06:27 | NUR ---
VS AND I&O COMPLETE. PT ABLE TO REPOSITION SELF IN BED. IV ABX INFUSING WNL. PT AFEBRILE AT THIS TIME. STRAWBERRY ENSURE PROVIDED PER REQUEST. NO FURTHER NEEDS. ALL LIGHT IN REACH.
--- NOTE | 2022-03-11 07:26 | NUR ---
report recieved from slot shift supervisor RN , pt awake in bed denies any needs at the moment
--- NOTE | 2022-03-11 08:11 | NUR ---
dayanatent is laying in bed. refused to get up in chair, pt was up all night. call light within reach no further tasks at this time
--- NOTE | 2022-03-11 08:24 | NUR ---
RN IN ROOM TO DO MORNING ASSESMENT AND MEDICATIONS, PT AWAKE IN BED, STATES HE DOESNT WANT TO GET UP TO CHAIR HE DIDNT SLEEP GOOD LIGHT NIGHT, DENIES PAIN AT THE MOMENT LUNGS CLEAR, DIMINSHED AT BASES, ENCOURGAED I.S. AND COUGH AND DEEP BREATH, NO PAIN AT THE MOMENT, BREAKFAST TRAY SET UP, CALL LIGHT WITHIN REACH NO OTHER NEEDS
--- NOTE | 2022-03-11 09:53 | NUR ---
rn in room to start iv abx, pt in bed, denies any needs, call light within reach
--- NOTE | 2022-03-11 12:04 | NUR ---
rn in room to round on pt, sitting up in bed, no other needs
--- NOTE | 2022-03-11 13:20 | NUR ---
Recieved call from [facility] to complete financial. to pts room and attempted to call 7 times before we were able to reach. Pt was able to hold the phone and I left while he continued call.
--- NOTE | 2022-03-11 13:46 | NUR ---
CHAPIN IS LAYING IN BED WATCHING TV. I&O AND VITALS CHARTED. CALL LIGHT WITHIN REACH. NO FURTHER TASKS AT THIS TIME
--- NOTE | 2022-03-11 14:17 | NUR ---
PT IN ROOM WORKING WITH THERAPY
--- NOTE | 2022-03-11 15:00 | NUR ---
Spoke with Gilbert, he states good news, they think he will qualify for terminal clerk medcaid. Nancy Flaherty will evaluate him later today.
--- NOTE | 2022-03-11 17:02 | NUR ---
RN IN ROOM TO DO 1700 MEDICATIONS ENCOURAGED PT TO GET UP TO THE CHAIR, PT AGREES NO SITIING UP, [employer] WORKER DELIVERED PERSONAL BELONGINGS
--- NOTE | 2022-03-11 17:46 | NUR ---
PT CALL LIGHT ON. PT REQUESTS TO GET BACK TO BED. 1 PERSON ASSIST WITH FWW BACK TO BED. PT TAKES SLOW SHUFFELING STEPS BUT IS ABLE TO AMBULATE FROM [place] TO BED. PT POSITIONS SELF IN BED. NO ADDITIONAL REQUESTS OR COMPLAINTS. CALL LIGHT WITHIN REACH. BED RAILS UP. PTS PRIMARY RN UPDATED.
--- NOTE | 2022-03-11 18:00 | NUR ---
rn in room to start iv abx, pt in bed wacthing tv denies any needs at the moment
--- NOTE | 2022-03-11 18:29 | NUR ---
wilmer is laying in bed. i&o and vitals charted. call light within reach. no further tasks at this time
--- NOTE | 2022-03-11 19:05 | NUR ---
SHIFT REPORT RECEIVED FROM DAYSHIFT KEDAR GODDARD AT BEDSIDE. pt AWAKE AND RESTING IN BED, BED ALARM ON FOR SAFETY. CALL LIGHT IN REACH. IV ABX INFUSING DIRECTED, IV SITE WNL. ENSURE PROVIDED PER pt REQUEST, NO FURTHER NEEDS.
--- NOTE | 2022-03-11 21:15 | NUR ---
IN TO TAKE VITALS, EMPTIED DUTTA, DUTTA CARE DONE, PROVIDED NEW ENSURE, NO FURTHER NEEDS AT THIS TIME
--- NOTE | 2022-03-11 21:42 | NUR ---
ASSESSMENT COMPLETE, SCHEDULED CARDIAC MEDICATION AND PRN TYLENOL GIVEN FOR ELEVATED TEMP, SEE VS. pt DENEIS PAIN AND NAUSEA, BOWEL TONES ACTIVE. IV SITE WNL, IV ABX INFUSING DIRECTED AND IS WNL. DUTTA PATENT, DRAININGYELLOW URINE. NO FURTHER NEEDS VERBALIZED, CALL LIGHT IN REACH.
--- NOTE | 2022-03-11 23:00 | NUR ---
IV PUMP ALARMING, IV ABX COMPLETE. IV SITE REINFORCED WITH TAP AND FLSUHES EASILY. BLOOD RETURN NOTED AND IS SALINE LOCKED. NEW ALCOHOL CAP IN PLACE. NO FURTHER NEEDS, CALL LIGHT IN REACH.
--- NOTE | 2022-03-11 23:57 | NUR ---
RECHECKED pt's TEMP, RESULT OF 99.1. NO ADDITIONAL NEEDS VERBALIZED. CALL LIGHT IN REACH.
--- NOTE | 2022-03-12 02:20 | NUR ---
SCHEDULED IV ABX INFUSING SCHEDULED. IV SITE WNL, BRISK BLOOD RETURN NOTED. ASSESSMENT COMPLETE, NO ACUTE CHANGES. DUTTA EMPTIED, ESURE PROVIDED. CALL LIGHT IN REACH.
--- NOTE | 2022-03-12 03:03 | NUR ---
CALL LIGHT ANSWERED, pt PROVIDED WITH HEAT PACK FOR PAIN IN RIGHT KNEE. NO DEFORMITY OR EDEMA NOTED. pt ALSO ASKING FOR "SOMETHING TO SLEEP". pt EDUCATED ON CURRENT TIME AND THAT STAFF WILL MESSAGE DR HERMOSILLO. SCD'S ON AND ATTENDS DRY. ASSESSMENT COMPLETE, NO ACUTE CHANGES.
--- NOTE | 2022-03-12 04:18 | NUR ---
pt RESTING IN BED WITH EYES CLOSED AND RR EVEN AND UNLABORED. NO DISTRESS NOTED. CALL LIGHT IN REACH. WILL MONITOR FOR CHANGES.
--- NOTE | 2022-03-12 06:43 | NUR ---
JADYN HOBSON IN ROOM TO COLLECT VS AND I&O'S. IV ABX INFUSING DIRECTED, IV SITE WNL. CALL LIGHT IN REACH.
--- NOTE | 2022-03-12 07:30 | NUR ---
REPORT RECIEVED FROM PREPARER MAKING DEPARTMENT RN, PT RESTING IN BED AWAKE AND ALERT, NO NEEDS AT THE MOMENT. CALL LIGHT WITHIN REACH.
--- NOTE | 2022-03-12 08:29 | NUR ---
rn in room to do morning assessment and medications, pt awake and alert in bed eating breakfast, deneis pain at the moment, lungs clear and diminished, occassional cough noted, no secretions.
--- NOTE | 2022-03-12 10:03 | NUR ---
VITALS AND I*OS CHARTED. DUTTA EMPTIED. ES IN ROOM AT THIS TIME
--- NOTE | 2022-03-12 10:05 | NUR ---
DUTTA CLAMPED AND PT EDUCATED ON VOIDING TRIAL AND PLAN.
--- NOTE | 2022-03-12 10:47 | NUR ---
RN IN ROOM TO START IV ABX, TOLERATED WELL NO OTHER NEEDS
--- NOTE | 2022-03-12 11:45 | NUR ---
Spoke with Gilbert. He cont. to work with PT. I called and left a message with Kimi Prakash asking if he has qualified for rn long term care medicaid and I can go ahead and attempt to find placement for this pt.
--- NOTE | 2022-03-12 12:40 | NUR ---
Received voice mail from Kimi. Looks like pt will qualify, she needs bank statements and also needs to have a form signed. I called and left a message with my fax number and let her know I can have pt sign any forms needed. I called [facility], [facility], and [facility]. No medicaid beds available. I left messages with Guardian Sofya and Kathryn at [facility] requesting if they have any beds available.
--- NOTE | 2022-03-12 13:00 | NUR ---
rn in room to round on pt, melvin noted to be uncampled . accidentally unclamped. reclamped educated pt to not let anyone touch it other than primary nurse
--- NOTE | 2022-03-12 15:30 | NUR ---
RN IN ROOM TO ANSWER CALL LIGHT , IV BEEPING, FLUSHED AND SALINE LOCKED, PT REQUESTING ENSURE. PROVIDED WITH INSURE STILL WITH NO URGE TO VOID
--- NOTE | 2022-03-12 16:00 | NUR ---
pt called out and reports urge to void, charles removed assisted to stand at bedside with urinal, pt unable to void
--- NOTE | 2022-03-12 16:10 | NUR ---
Received a call from Kimi and she states she is working from home today and unable to fax the form. She will either fax the form tomorrow and bring it for pts to sign. She also asks if pt can call his bank and request they fax 3 months of statements to [employer] fax number [phone]. Let her know, I am not here tomorrow, but I will leave a note for Shayy from .
--- NOTE | 2022-03-12 16:57 | NUR ---
rn in room asked pt if he needs to void pt reports no urge. bladder scan showed 207
--- NOTE | 2022-03-12 19:05 | NUR ---
SHIFT REPORT RECEIVED FROM DAYSSDFT KEDAR GODDARD AT BEDSIDE. pt AWAKE AND RESTING IN BED, URINAL AT BEDSIDE. BED ALARM ON AND CALL LIGHT IN REACH. IV ABX INFUSING DIRECTED, IV SITE WNL.
--- NOTE | 2022-03-12 20:20 | NUR ---
PT NEEDS TO VOID, SBA TO STAND AT BEDSIDE, VOID, RN IN TO ESAU, NO FURTHER NEEDS
--- NOTE | 2022-03-12 20:37 | NUR ---
pt USED CALL LIGHT TO VOID SO SUPERVISOR FUR FLOOR WORKER COULD PRE BLADDER SCAN, UNABLE TO D/T URGENCY. pt VOIDED 200MLS WITH POST VOID RESIDUAL OF 5MLS. BED ALARM RESUMED AND CALL LIGHT IN REACH.
--- NOTE | 2022-03-12 22:16 | NUR ---
IV PUMP WAS BEEPING, IV IS NOW SL. PT DENIES FURTHER NEEDS. CALL LIGHT IS CLOSE.
--- NOTE | 2022-03-12 22:30 | NUR ---
IN TO GET VS, I&Os, NO FURTHER NEEDS
--- NOTE | 2022-03-12 22:45 | NUR ---
SCHEDULED MEDS GIVEN, SEE EMAR. VSS, pt DENIES PAIN AND NAUSEA. HOUSE FLOAT RN TO BRING SCHEDULED AUGMENTIN TO MEDSURG. MEDS GIVEN WITHOUT ISSUE. pt ABLE TO TURN SELF IN BED, BECOMING MORE INTERACTIVE AND ENGAGING WITH THRILL PERFORMER. IV SITE WNL, FLUSHES EASILY. NO FURTHER NEEDS, CALL LIGHT IN REACH. BED ALARM ON.
--- NOTE | 2022-03-12 23:42 | NUR ---
SCHEDULED AUGMENTIN GIVEN, SEE EMAR. MED GIVEN WITH SNACK. CLARIFED WITH DR HERMOSILLO, COMBO IS THE 500-125MG AUGMENTIN TABLET FORMULATION. NO FURTHER NEEDS, CALL LIGHT IN REACH. BED ALARM ON.
--- NOTE | 2022-03-13 02:45 | NUR ---
IN TO RECHECK PTs TEMP, NORMAL, PT HAD RECENTLY VOIDED WTH URINAL, ENSURE PROVIDED
--- NOTE | 2022-03-13 03:02 | NUR ---
INFORMED BY BREAKER MACHINE TENDER THAT Pt HAD ALREADY VOIDED VIA URINAL. 175MLS OUTPUT NOTED. IN ROOM TO ASSESS pt. pt EDUCATED ON NEE TO PRE AND POST VOID BLADDER SCAN pt, pt VERBALIZED UNDERSTANDING WITH NEED TO CALL STAFF WHEN READY FOR NEXT VOID. URINAL OUT OF REACH AND IN BATHROOM, BED ALARM ON. pt BLADDER SCANNED AT THIS TIME FOR HIGHEST AMOUNT 248MLS, WILL CONTINUE TO MONITOR. CALL LIGHT IN REACH.
--- NOTE | 2022-03-13 04:20 | NUR ---
CALL LIGHT ANSWERED, pt REPORTS NEED TO VOID. pt EXPRESSED URINAL URGENCY AND WAS UNABLE TO PREVOID BLADDER SCAN pt D/T URGENCY. pt VOIDED 300MLS, POST VOID RESIDUL OF 230MLS.
--- NOTE | 2022-03-13 06:51 | NUR ---
ASSISTED pt WITH URINAL, 325 MLS OUTPUT NOTED WITH X1 SMALL UNMEASURED. BM X1 ALSO NOTED. POST RESIDUAL VOLUME OF 108MLS. DR HERMOSILLO MADE AWARE TRENDING VOIDS AND POST VOIDS RESIDUALS, NO NEW ORDERS AT THIS TIME. PER MD, pt IS VOIDING AND IS ACCEPTABLE AT THIS TIME.
--- NOTE | 2022-03-13 07:30 | NUR ---
REPORT RECIEVED FROM JILLIAN DRAKE RN, PT AWAKE IN BED WACTHING TV. VOIDING WELL OVER NIGHT DENIES ANY NEEDS, CALL LIGHT WITHIN REACH BED ALARM ON FOR SAFTEY
--- NOTE | 2022-03-13 08:37 | NUR ---
RN IN ROOM TO DO MORNING ASSESMENT, PT AWAKE IN BED OFFERED TO GET UP TO CHAIR, PT STATES HE WANTS TO SLEEP HE DIDNT GET ENOUGH REST LAST NIGHT, CURRENTLY DENIES PAIN. IV FLUSHED AND SALINE LOCKED, BREAKFAST TRAY DELIVERED AND SET UP NO OTHER NEEDS AT THE MOMENT
--- NOTE | 2022-03-13 09:47 | NUR ---
VS AND I&O'S HAVE BEEN TAKEN AND DOCUMENTED. LINEN CHANGE AND NEW URINAL GIVEN. PT STATES HE HAS NO NEEDS AT THIS TIME. INFORMED PT TO CALL IF HE NEEDS ANYTHING. CALL LIGHT IS IN REACH.
--- NOTE | 2022-03-13 11:35 | NUR ---
rn in room to round on pt, sitting in bed wacthing TV. daughter came to visit pt, denies any needs at the moment.
--- NOTE | 2022-03-13 12:01 | NUR ---
PT IN HALLWAY AMBULATING WITH P.T. NEEDED TO REST IN WC. GAVE ENCOURAGEMENT AND BLESSING. WILL FOLLOW
--- NOTE | 2022-03-13 14:48 | NUR ---
rn in room rounding on pt cn in room doing vitals pt denies any pain or discomforted noted to have
--- NOTE | 2022-03-13 20:56 | NUR ---
GARBLED SPEECH, NODS YES, NO. ON ROOM AIR, LUNGS DIM AT BASES, ABD SOFT, HAD SMEARS OF BM THIS SHIFT, SKIN CARE, UP TO BSC 1-2PA-FWW. WAS ALSO INCONTINENT OF URINE. BACK TO BED, TOLERATED WELL. PLEASANT AND COOP, FORGETFUL, R SIDED WEAKNESS. HELPED REPOSITION IN BED. TOLERATING LIQUIDS WELL, FALL AND ASPIRATION PRECAUTIONS IN PLACE, BED ALARM
--- NOTE | 2022-03-13 22:00 | NUR ---
IN TO ASSIST PT WITH BSC NEEDS, UP TO PASS A BM, PT BACK TO BED, PT REQEUST THIS CLAIMS INVESTIGATOR TO DUMP BEDSIDE FLUIDS OUT SO PT "DIDNT HAVE TO PEE ALL NIGHT", NO FURTHER NEEDS AT THIS TIME
--- NOTE | 2022-03-13 22:43 | NUR ---
eyes closed, on room air, no distress, call light and fluids at bedside, bed alarm on
--- NOTE | 2022-03-13 23:30 | NUR ---
BED ALARM SET OFF, PT WAS REPOSITIONING IN BED, RESET BED ALARM PT ASKED TO GET AN ENSURE, PROVIDED TO PT, NO FURTHER NEEDS
--- NOTE | 2022-03-14 01:30 | NUR ---
Eyes closed, on room air, no distress, call light at hand sreach, Bed alarm on
--- NOTE | 2022-03-14 03:34 | NUR ---
Resting, eyes closed, on room air, no distress, call light at hands reach. Bed alarm in place
--- NOTE | 2022-03-14 04:17 | NUR ---
Pt on room air, lungs dim at bases, no sob, takes shallow breathing. sats WNL. turns and repositions self in bed. R side residual deficit, Up to BSC and edge of bed with 1-2PA/FWW, walked to BS, had smears of bm x2, skinc are, attends in place, used urinal at edge of bed, tolerated well, voiding QS, dark urine.c/o back and generalized pain, medicated with Tylenol, effective. uses call light, no c/o CP or SOB, on soft bites diet due to poor oral hygiene/dentition.
--- NOTE | 2022-03-14 05:01 | NUR ---
used call light, 1pa/fww to edge of bed, voided dark urine, tolerated well, plus was incontinent of urine. back to bed. coop wt assessment and vitals. Bed alarm on return to bed, pleasant and coop. R sided deficit still present, speech clear at time
--- NOTE | 2022-03-14 07:15 | NUR ---
REPORT RECEIVED FROM KEDAR JOSÉ. PT RESTING IN BED ON LEFT SIDE WITH EYES CLOSED, RESPIARTIONS EVEN AND UNLABORED. BED RAILS UP. CALL LIGHT WITHIN REACH. PT ALLOWED TO REST. BED ALARM ON.
--- NOTE | 2022-03-14 09:30 | NUR ---
MORNING ASSESSMENT AND MEDICAITON DUE. PT RESTING IN BED, FINISHED WITH BREAKFAST. PT ENCROAUGED TO GET UP TO CHAIR. PT DENIES PAIN AND NAUSEA. STAND BY ASSIST WITH FWW UP TO STAND. LARGE INCONTINANT STOOL AND URINE NOTED IN BED AND DEPENDS. JOE CARE DONE. DEPENDS AND GOWN CHANGED. PT ABLE TO STAND WITH FWW WHILE JOE CARE IS DONE, SUPPORTS SELF AND USES URINAL ON HIS OWN. PT ALERT AND OREINTED TO ALL. NIH SCORE OF 4 FOR MINOR RIGHT SIDED FACIAL DROOP AND SLURRED SPEACH. MINIMAL EXPRESSIVE APHASIA NOTED, PT ABLE TO FIND WORDS TO EXPRESS NEEDS AND REPEATS SENTENCES BACK TO THIS RN. PT ABLE TO HOLD RIGHT LEG UP MINOR DRIFT, IS NOTED TO DRAG RIGHT LEG WITH AMBLUATION TO CHAIR. LUNG SOUNDS CLEAR. I.S. USE DEMONSRATED REACHING 1000-1500ML X5. PT NOTED TO HAVE OCCATIONAL COUGH. HEART TONES REGULAR. BOWEL MEDICATIONS HELD. PT SWALLOWS PILLS WITHOUT ISSUE. NO COUGHING OR THROAT CLEARNING NOTED AFTER PILLS. PT REMAINS UP TO CHAIR. NO ADDITIONAL REQUESTS OR COMPLAINTS. CALL LIGHT WITHIN REACH. CHAIR ALARM ON.
--- NOTE | 2022-03-14 10:12 | NUR ---
THIS RN TO ROOM TO CHECK ON PT. PT UP TO BEDSIDE COMODE WITH 1 PERSON ASSIST AND FWW TO USE URAINL. DEPENDS SOILD. JOE CARE DONE. DEPENDS CHANGED. PT CONTINUES TO DENY PAIN AND NAUSEA. PHYSCIAL THERAPY TO BEDSIDE TO WORK WITH PT.
--- NOTE | 2022-03-14 11:06 | NUR ---
IT APPLICATION ADMINISTRATOR REPORTS TO THIS RN THAT PTS HEART RATE IS ELEVATED. APICAL PULSE TAKEN BY THIS RN AND FOUND TO BE 105, ESTRELLA BARRAZA. NOTED THAT PT WAS RECENTLY UP TO AMBULATE WITH PHYSICAL THERAPY. PT RESTING IN BED. PT DENIES PAIN AND NAUSEA. NO ADDITIONAL REQUESTS OR COMPLAINTS. CALL LIGHT WITHIN REACH. BED RAILS UP. BED ALARM ON.
--- NOTE | 2022-03-14 11:52 | NUR ---
MEDICATION DUE. THIS RN TO ROOM. PT IN BED EATING LUNCH. HEAD OF BED ELEVATED TO 51 DEGREES. PT ENCOUARGED TO GET UP TO CHAIR FOR LUNCH. PT DECLINES. EDUCATION DONE, PT CONTINUES TO DECLINE. HEART RATE NOW 68, TAKEN APICALLY. PT DENIES PAIN AND NAUSEA. NO ADDITIONAL REQUESTS OR COMPLAINTS. CALL LIGHT WITHIN REACH. BED RAILS UP.
--- NOTE | 2022-03-14 12:47 | NUR ---
THIS RN TO ROOM TO CHECK ON PT. PT FINISHED WITH SHOWER AND UP TO CHAIR. PT DEMONSTRATES USE OF CORNET X10 AND I.S. REACHIGN 1000-1500ML X5. COUGH NOTED AFTER I.S. USE CAUSING PT TO CLEAR YELLOW/GREEN SPUTUM FROM CHEST. PT DENIES PAIN AND NAUSEA. PT TRANSFERES ARROUND ROOM WITH 1 PERSON ASSIST AND FWW. NO ADDITIONAL REQUESTS OR COMPLAINTS. CALL LIGHT WITHIN REACH. CHAIR ALARM ON.
--- NOTE | 2022-03-14 14:02 | NUR ---
PATIENT WENT BACK TO THE BED, AFTER SITTING UP IN THE CHAIR FOR LUNCH. VITALS WERE DONE. CALL LIGHT WITH IN REACH. NO FURTHER NEEDS AT THIS TIME.
--- NOTE | 2022-03-14 14:47 | NUR ---
AFTERNOON ASSESSMENT DUE. PT RESTING IN BED WITH HEAD OF BED ELEVATED TO 33 DEGREES. PT TELLS LENGHTY STORIES FROM HIS LIFE AND CHILDHOOD. PT ALSO ELABORATES ON HIS PLAN AFTERDISCHRAGE FOR RECOVERY AND TO GO AND SEE HIS FAMILY. PTS SPEACH CLEAR AND UNDERSTANDABLE, ALTHOUGH SLIGHTLY SLURRED. STORIES HAVE A LINEAR TIME LINE AND MAKE SENSE. PT DENIES PAIN AND NAUSEA. PT ALERT AND ORIENTED TO ALL. MILD RIGHT SIDED FACIAL DROOP NOTED. NO ARM DRIFT OR LEG DRIFT PRESENT. NIH SCORE OF 3. LUNG SOUNDS CLEAR. PT DEMONSRATES USE OF CORNET X10 AND I.S. X5 REACHIGN 1000ML-1500ML. HEART TONES REGULAR. PT INCONTINANT AT TIMES, URINARY URGENCY NOTED. PT USING URINAL WHEN ABLE TO GET IT IN TIME. PT DENIES ADDITIONAL REQUESTS OR COMPLAINTS. CALL LIGHT WITHIN REACH. BED RAILS UP.
--- NOTE | 2022-03-14 15:14 | NUR ---
PT HERE FOR TIA WITH RIGHT SIDED WEAKNESS. PT UP TO CHAIR, SHOWER, AND PHYSICAL THERAPY THIS SHIFT WITH 1 PERSON ASSIST AND FWW. PT TOLERATING SOFT DIET WITH MODERATE APPITITE. NIH SCORES THIS SHIFT OF 4 AND 3 FOR RIGHT SIDED FACIAL DROOP AND MILDY SLURRED SPEACH. OCCATIONAL DRAGGING OF RIGHT FOOT WITH AMBULATION, BUT PT IS ABLE TO HOLD LEGS AND ARMS OFF THE BED WITH NO DRIFT NOTED. ROUTE CLERK STRENGTH EQUAL BILATERALLY. PT ALERT AND OREINTED THROUGHOUT SHIFT, FOLLOWS DIRECTIONS AND TELLS SENSICAL STORIES. PT INCONTANT AT TIMES OF BOTH URINE AND STOOL, USING URINAL WHEN ABLE. PT NOTED TO BE TACHYCARDIC AFTER AMBULATION IN [place] THIS SHIFT, RECOVERS WITH REST. PT DECLINES NICOTENE PATCH THIS SHIFT. PT DENIES PAIN AND NAUSEA THIS SHIFT. PT VOIDING QUANTITY SUFFICIENT. PT USES CALL LIGHT AND MAKES NEEDS KNOWN.
--- NOTE | 2022-03-14 16:12 | NUR ---
THIS RN TO ROOM TO CHECK ON PT. PT RESTING IN BED, PT DENIES PAIN AND NASUEA. PT REQUESTS SOME STRAWBERRY MILK OR A MILKSHAKE, STRAWBERRY ENSURE MILKSHAKE ORDERED FOR PT. PT DENIES ADDITIONAL REQUESTS OR COMPLAINTS. PT ENCOURAGED TO GET UP OUT OF BED, PT STATES "AT DINNER I WILL." NO ADDITIONAL REQUESTS OR COMPLAINTS. CALL LIGHT WITHIN REACH. BED RAILS UP.
--- NOTE | 2022-03-14 16:58 | NUR ---
MEDICATION DUE. THIS RN TO ROOM. 1 PERSON ASSIST WITH FWW UP TO CHAIR FOR DINNER. PT DENIES PAIN AND NAUSEA. DINNER DELIVERED, PT EATING DINNER WITH NO SWALLOWING ISSUES NOTED. MEDICATION GIVEN. NO ADDITIONAL REQUESTS OR COMPLAINTS. CALL LIGHT WITHIN REACH. CHAIR ALARM ON.
--- NOTE | 2022-03-14 17:35 | NUR ---
THIS RN TO ROOM TO CHECK ON PT. PT UP TO CHAIR, FINISHED WITH DINNER. PT REQUESTS TO GET BACK TO BED. DEPENDS SATURATED WITH URINE. SOFT INCONTANT BROWN BOWEL MOVEMENT NOTED WELL. JOE CARE DONE. DEPENDS CHANGED. 1PA WITH FWW BACK TO BED. WARM BLANKET PROVIDED. NO ADDITIONAL REQUESTS OR COMPLAINTS. CALL LIGHT WITHIN REACH. BED RAILS UP.
--- NOTE | 2022-03-14 18:26 | NUR ---
THIS RN TO ROOM TO CHECK ON PT. PT RESTING IN BED, ALERT AND OREINTED, WATCHING TV. HEAD OF BED ELEVATED TO 40 DEGREES. PT DENIES PAIN AND NAUSEA. NO ADDITIONAL REQUESTS OR COMPLAINTS. CALL LIGHT WITHIN REACH. BED RAILS UP. BED ALARM ON.
--- NOTE | 2022-03-14 19:24 | NUR ---
ON ROOM AIR, USED CALL LIGHT. UP TO EDGE OF BED 1PA/FWW, WAS INCONTINET OF URINE AND BOWEL, SKINC ARE, CLEAN ATTENDS, BACK TO BED, TOLERATED WELL, R SIDED DEFICIT, SPEECH MORE CLEAR. SL LFA PATENT. COOP WITH ASSESSMENTS. TOLERATING LIQUIDS WELL. PLEASNT AND COOP. BED ALARM ON. IS AND CORNET AT BEDSIDE, ECNOURAGED TO USE, STATED "OK ITS HARD"
--- NOTE | 2022-03-14 22:47 | NUR ---
ON ROOM AIR, EYES CLOSED, RESTING, NO DISTRESS, FLUIDS AND CALL LIGHT AT HNADS REACH, BED ALARM ON
--- NOTE | 2022-03-15 01:36 | NUR ---
used call light, up to edge of bed, used urinal, much improved stamina and gait, 1pa/fww. jello given on requests, voided dark yellow urine. no c/o pain or CP. coop with assessment. Helped reposition in bed, Bed alarm on
--- NOTE | 2022-03-15 05:29 | NUR ---
PT ON ROOM AIR, DENIES SOB OR CP, CONT TO HAVE R SIDED DEFICIT, MUCH MORE IMPROVED GAIT AND STAMINE. 1PA/FWW HELPS SELF OUT OF BED WITH MINIMUM OF ASSIST AND WALKS UP TO HOB. SPEECH GARBLED AT TIMES AND VERY CLEAR AT OTHERS DEPENDING ON CONVERSATION. SL PATENT. HAS USED URINAL, UP TO BSC X1, SOFT BM, ATTENDS IN PLACE.TOLERATING LIQUIDS WELL, NO C/O PAIN. HELPS WITH REPOSITIONING, BED ALARM ON, FALL AND ASPIRATION PRECAUTIONS IN PLACE
--- NOTE | 2022-03-15 06:33 | NUR ---
AWAKES EASILY, ON ROOM AIR, COOP WITH VITALS, UP TO EDGE OF BED SCOOTED SELFT TO EDGE AND VERY MINIMUM OF ASSIST, VOIDED DARK YELLOW URINE, BACK TO BED, TOLERATED VERY WELL, NO C/O PAIN OR SOB, TACHY AT 115. TOLERATING LIQUIDS WELL CALL LIGHT AT HANDS REACH, BED ALARM ON
--- NOTE | 2022-03-15 07:09 | NUR ---
REPORT RECEIVED FROM KEDAR JOSÉ. PT RESTING IN BED WATCHING TV. PT REPORTS HE HAD A "GOOD" NIGHT. PT DENIES PAIN AND NAUSEA. NO ADDITIONAL REQUESTS OR COMPLAINTS. BED RAILS UP. CALL LIGHT WITHIN REACH.
--- NOTE | 2022-03-15 08:18 | NUR ---
MORNING ASSESSMENT AND MEDICATION DUE. PT RESTING IN BED WATCHING TV. PT DENIES PAIN AND NAUSA. STAND BY ASSIST WITH FWW UP TO CHAIR. SKIN NOTED TO BE VERY DRY. PT APPLIES LOTION TO LEGS ARMS, HANDS AND FEET WITH MINIMAL ASSISTANCE. IV TO LEFT FORARM DC'D PER PROTOCOL, GAUZE AND COBAN APPLIED. PT ALERT AND ORIENTED TO ALL. VERY MINIMAL RIGHT SIDED FACIAL DROOP NOTED, ONLY WHEN PT FILLS CHEEKS WITH AIR OR SMILES BIG. NO DRIFT NOTED IN ANY EXREMITIES. MINIOR RIGHT SIDED WEAKNESS NOTED WHEN PT IS PUSHING HANDS/LEGS AGINST RESISTANCE. SPEACH REMAINS MINIMALLY GARBLED, PTS SPEACH CAN BE UNDERSTOOD WITH MINIMAL EFFORT. LUNG SOUNDS CLEAR. HEART TONES REGULAR. BOWEL TONES ACTIVE. ABDOMEN SOFT. PT DECLINES BOWEL MEDICATIONS, MULTIPLE BOWEL MOVEMENTS NOTED OVER THE PAST 24 HOURS, MEDICATIONS HELD. PT DECLNES NICOTENE PATCH. PT EATING BREAKFAST, SWALLOWS PILLS WITHOUT ISSUE. OCCATIONAL INCONTANCE NOTED. PT USUING URINAL WHEN ABLE, URGENCY CONTINUES. PT DEMONSRATES USE OF CORNET X5 AND I.S. X3 REACHING 750-1200ML. PT REMAINS UP TO CHAIR. NO ADDIITONAL REQUESTS OR COMPLAINTS. CALL LIGHT WITHIN REACH. CHAIR ALARM ON.
--- NOTE | 2022-03-15 09:47 | NUR ---
THIS RN TO ROOM TO CHECK ON PT. PT RESTING IN BED, WATCHING TV. PT DENIES PAIN AND NAUSEA. PT TELLING STORIES AN INTERACTING APPROPRAITLY. PT DENIES REQUESTS OR COMPLAINTS. CALL LIGHT WITHIN REACH. BED RAILS UP.
--- NOTE | 2022-03-15 10:50 | NUR ---
REPORT GIVEN TO KEDAR ACEVEDO, WHO IS TEMPORALLY ASSUMING CARE OF PT.
--- NOTE | 2022-03-15 11:00 | NUR ---
PT REPORT RECEIVED FROM SABA THACKER. PT RESTING IN BED, TALKING ON PHONE. CALL LIGHT IN REACH.
--- NOTE | 2022-03-15 11:50 | NUR ---
SCHEDULED MED PROVIDED. PT EATING LUNCH AT THIS TIME. CALL LIGHT IN REACH.
--- NOTE | 2022-03-15 13:47 | NUR ---
REPORT RECEIVED FROM KEDAR ACEVEDO. PT UP TO CHAIR, RESTING WITH EYES CLOSED. RESPIRATIONS EVEN AND UNLABORED. PT ALLOWED TO REST. CALL LIGHT WITHIN REACH.
--- NOTE | 2022-03-15 14:36 | NUR ---
AFTERNOON ASSESSMENT DUE. PT CALL LIGHT ON. PT REQUESTS ASSISTANCE TO USE THE URINAL. STAND BY ASSIST UP TO STAND WITH FWW. PT DENIES PAIN AND NAUSEA. PT REMAINS ALERT AND OREINTED. SPEACH MILDY GARBLED BUT UNDERSTANDABLE. STRENGTH IMPROVING, RIGHT SIDE MILDY WEAKER AGAINST RESITANCE AND PT NOTED TO DRAG RIGHT LEG WHEN WALKING. STIFF GATE NOTED EVEN WITH WALKER. PT UP TO RESTROOM WITH STAND BY ASSIST AND FWW. PT HAS MEDIUM BROWN SOFT CONTINANT STOOL AND VOIDS 200ML. PT ASSISTED WITH JOE CARE. DEPENDS CHANGED. STAND BY ASSIST BACK TO CHAIR. PT DECLINES ADDITIONAL AMBULATION WHEN OFFERED. LUNG SOUNDS CLEAR. CORENT AND I.S. USED DEMONSTRATED PT REACHES 1250-1700ML X5 ON I.S. NO COUGHING NOTED WITH I.S. USE. HEART TONES REGULAR. WARM BLANKETS PROVIDED. PT REQUESTS PUDDING, PROVIDED. NO ADDITONAL REQUESTS OR COMPLAINTS. CALL LIGHT WIHTIN REACH. CHAIR ALARM ON.
--- NOTE | 2022-03-15 17:08 | NUR ---
THIS RN TO ROOM TO CHECK ON PT. STAND BY ASSIST WITH FWW UP TO RESTROOM. PT VOIDS AND HAS SOFT MEDIUM BROWN BOWEL MOVEMENT. JOE CARE DONE. DEPENDS CHANGED. STAND BY ASSIST UP TO CHAIR. PT EATING DINNER. MEDICATIONS GIVEN. PT DENIES ADDITIONAL REQUESTS OR COMPLAINTS. CALL LIGHT WITHIN REACH.
--- NOTE | 2022-03-15 18:31 | NUR ---
THIS RN TO ROOM TO CHECK ON PT. STAND BY ASSIST WITH FWW BACK TO BED. PT DENIES PAIN AND NAUSEA. PT TACHYCARDIC WITH AMBULATION AND ACTIVITY. REMAINS MILDY TACHYCARDIC, WILL CONTINUE TO MONITOR. PT DENIES ADDITIONAL REQUESTS OR COMPLAINTS. CALL LIGHT WITHIN REACH. BED RAILS UP.
--- NOTE | 2022-03-15 18:43 | NUR ---
PT HERE FOR STROKE/TIA AND PHYSICAL THERAPY. PT UP WITH STAND BY ASSIST AND FWW THIS SHIFT. PT TOLERTING SOFT DIET WITH GOOD APPITITE. PT DENIES PAIN AND NAUSEA THIS SHIFT. PT ALERT AND ORIENTED THROUGHOUT SHIFT. STRENGTH IMPROVING, RIGHT SIDED WEAKESS NOTED ONLY WITH RESISTANCED AGAINST EXTREMITIES. GATE IMPROVING. BOWEL MEDICATIONS HELD, MULTIPLE SOFT BOWEL MOVEMENTS THIS SHIFT. PT CONTINENT THIS SHIFT AND CORINE TO GET TO THE RESTROOM IN TIME IN MOST CASES. TACHYCARDIA CONTINUES WITH ACTIVITY, RECOVERS WITH REST. IV DC'D, NO NEED FOR ADDITIONAL IV AT THIS TIME. PT VOIDING QUANITTY SUFFICIENT. PT USES CALL LIGHT AND MAKES NEEDS KNOWN.
--- NOTE | 2022-03-15 20:04 | NUR ---
RECEIVED REPORT FROM [facility] NURSE. ASSISTED PATIENT TO RESTROOM BY SBA. PATIENT UNABLE TO VOID. ASSISTED PATIENT BACK TO BED. PATIENT GIVEN ENSURE. NO FURTHER NEEDS NOTED. CALL LIGHT IN PLACE.
--- NOTE | 2022-03-15 21:15 | NUR ---
ASSESSMENT COMPLETED. PATIENT ALERT IN BED. VITALS TAKEN & RECORDED. INPUT & OUTPUT RECORDED. SCHEDULED MEDICATIONS ADMINISTERED PER ORDERS. PATIENT DENIES ANY PAIN. NO IV PER ORDER. FRESH ICE WATER PROVIDED. BED ALARM SET. CALL LIGHT WITHIN REACH.
--- NOTE | 2022-03-15 22:31 | NUR ---
PROVIDED JELLO PER PATIENT REQUEST. PATIENT HOB ELEVATED WHILE EATING. NO FURTHER NEEDS NOTED. BED ALARM SET. CALL LIGHT WITHIN REACH.
--- NOTE | 2022-03-16 01:16 | NUR ---
PATIENT RESTING IN BED WITH EYES CLOSED. RR 14. NO FURTHER NEEDS NOTED. BED ALARM SET. CALL LIGHT WITHIN REACH.
--- NOTE | 2022-03-16 01:26 | NUR ---
PATIENT SET OFF BED ALARM WHILE VOIDING IN URINAL. EMPTIED URINAL. BED ALARM RESET. PROVIDED ENSURE PER PATIENT REQUEST. NO FURTHER NEEDS NOTED. CALL LIGHT WITHIN REACH.
--- NOTE | 2022-03-16 03:00 | NUR ---
PATIENT RESTING WITH EYES CLOSED. RR 14. NO FURTHER NEEDS NOTED. BED ALARM SET. CALL LIGHT W/IN REACH.
--- NOTE | 2022-03-16 05:31 | NUR ---
PT WAS SWABBED FOR COVID 19
--- NOTE | 2022-03-16 06:13 | NUR ---
ASSESSMENT COMPLETED. PATIENT VOIDED IN URINAL. VITALS TAKEN & RECORDED. INPUT & OUTPUT RECORDED. PATIENT DENIED PAIN. GAVE ENSURE PER PATIENT REQUEST. WATER REFRESHED. NO FURTHER NEEDS NOTED. BED ALARM SET. CALL LIGHT WITHIN REACH.
--- NOTE | 2022-03-16 07:22 | NUR ---
REPORT RECEIVED FROM KEDAR HARDING. PT RESTING IN BED, DROSWY BUT RESPONSIVE. HEAD OF BED ELEVATED TO 25 DEGREES. PT DENIES PAIN AND NAUSEA. NO ADDIITONAL REQUESTS AT THIS TIME. CALL LIGHT WITHIN REACH. BED RAILS UP. BED ALARM ON. PT ALLOWED TO REST.
--- NOTE | 2022-03-16 09:22 | NUR ---
MORNING ASSESSMENT AND MEDICATION DUE. PT UP TO CHAIR, FINISHED WITH BREAKFAST. PT DENIES PAIN AND NAUSEA. PT ALERT AND ORIENTED TO ALL. NIH SCORE OF 3 FOR MINOR RIGHT SIDED FACIAL DROOP AND MINOLY SLURRED SPEACH/EXPRESSIVE APHASIA. RIGHT SIDED WEAKNESS PRESENT BUT ONLY NOTED WITH RESISTANCE IS APPLIED. PT ABLE TO PUSH AGAINST RESISTANCE IN ALL EXREMITIES, IMPROVING STRENGTH NOTED. LUNG SOUNDS CLEAR. HEART TONES REGULAR. PT TOLERATING REGULAR SOFT DIET WITH IMPROVING [place]. PT ALSO DRINKING ENSURE THAT IS PROVIDED. PT DENIES ADDITIONAL REQUESTS OR COMPLAINTS. PT ASSISTED WITH USING STRENGHTENING TOYS TO RIGHT HAND/ARM. PT DENIES ADDITIONAL REQUESTS OR COMPLAINTS. CALL LIGHT WITHIN REACH. CHAIR ALARM ON.
--- NOTE | 2022-03-16 10:30 | NUR ---
PATIENT ON A 2 GRAM SODIUM, SOFT & BITE SIZED DIET WITH THIN LIQUIDS. HE HAS A GOOD APPETITE. HE IS MISSING SEVERAL TEETH. HE DOES ASK FOR ENSURE 1-2 TIMES A DAY. HE CAME IN HOUSELESS, NOW AWAITING PLACEMENT. HE IS GETTING 3 BALANCED MEALS HERE. PATIENT IS APPRECIATIVE OF US BRINGING HIM MEALS. NO FURTHER NUTRITION INTERVENTION AT THIS TIME. WILL CONTINUE TO MONITOR.
--- NOTE | 2022-03-16 10:49 | NUR ---
THIS RN TO ROOM TO CHECK ON PT. PT UP TO AMBULATE IN [place] WITH PHYSICAL THERPAY AND NOW WORKING ON ADL MORNING CARES WITH OCCUPATIONAL THERPAY. PT WASHING FACE IN SINK. PT DENIES PAIN AND NAUSEA AND STATES HE HAS NO REQUESTS OR COMPLAINTS. OCCUPATIONAL THERPIST WITH PT.
--- NOTE | 2022-03-16 11:20 | NUR ---
RELL URIARTE AT [facility] REGARDING PLACEMENT UPDATE.
--- NOTE | 2022-03-16 11:28 | NUR ---
PATIENT SITTING IN CHAIR TALKING WITH PLANT ACCOUNTANT. PLANT ACCOUNTANT DID VITALS. PATIENT CHECKED ON AND VITALS CHARTED BY THIS FORK ASSEMBLER. CALL LIGHT IN REACH. CHAIR ALARM ON. NO FURTHER NEEDS AT THIS TIME.
--- NOTE | 2022-03-16 11:40 | NUR ---
SPOKE WITH LONI PT, PATIENT OKAY TO RECV HOME [facility] PT WHEN DISCHARGED. ADVISED LONI PT THAT CASE MANAGEMENT WILL CONTINUE TO WORK ON PLACEMENT. CHART FAXED TO [facility] @ [phone]. FAX CONFIRMATION RECVD 03/16/22 @ 7163.
--- NOTE | 2022-03-16 12:08 | NUR ---
THIS RN TO ROOM TO CHECK ON PT. PT UP TO CHAIR, VISITING WITH HIS DUAGHTER AND WORKING ON SQUEEZING HAND FOAMS TO STRENGTHEN ARMS. PT DEMONSTRATES US OF I.S. REACHIGN 2000ML X5 AND CORENT X5. PT DENIES PAIN AND NAUSEA. NO ADDITIONAL REQUESTS OR COMPLAINTS. CALL LIGHT WITHIN REACH.
--- NOTE | 2022-03-16 13:28 | NUR ---
THIS RN TO ROOM TO CHECK ON PT. PT BACK TO BED FOR A REST. PT REPORTS HE PLANS TO REST IN BED UNTIL 1500. PT WORKING WITH COMMERCIAL PRODUCTION EDITOR. PT DENIES PAIN AND NAUSEA. NO ADDITIONAL REQUESTS OR COMPLAINTS. CALL LIGHT WITHIN REACH. BED RAILS UP.
--- NOTE | 2022-03-16 13:30 | NUR ---
PT SITTING IN CHAIR, SANDRAD R.ARM. GREAT IMPROVEMENT FROM LAST WEEK. PT COULD NOT COME CLOSE TO THAT MUCH MOVEMENT. HE WAS EXCITED, GAVE ENCOURAGEMENT AND WILL FOLLOW
--- NOTE | 2022-03-16 13:39 | NUR ---
RECVD CALL FROM KALANI AT [facility], NO BED CURRENTLY AVAILABLE IN [place]. DOES HAVE AVAILABILITY AT THIS TIME. DISCUSSED THIS WITH PATIENT AND HE STATES HE WOULD LIKE TO MOVE TO [place]. HE STATES "I HAVE NEVER LIVED THERE, BUT I LIKE THE COUNTRY OVER THERE." CHART FAXED TO KALANI AT [phone] FOR REVIEW.
--- NOTE | 2022-03-16 14:41 | NUR ---
PATIENT IN BED RESTING AT THIS TIME. VITALS AND I&O'S CHARTED. CALL LIGHT IN REACH. NO FURTHER NEEDS AT THIS TIME.
--- NOTE | 2022-03-16 15:15 | NUR ---
AFTERNOON ASSESSMENT DUE. PT RESTING IN BED WITH EYES CLOSED. PT AWAKENS TO MOVEMENT IN ROOM. PT REPORTS HE IS READY TO GET UP TO CHAIR. PT ASSISTED WITH URINAL USE. STAND BY ASSIST UP TO CHAIR. PT DENIES PAIN AND NAUSEA. PT ALERT AND OREINTED. VERY MINIMAL RIGHT FACIAL DROOP NOTED. PT ABLE TO COMMUNICATE, SPEACH MILDLY GARBLED. STRENGTH IMPROVING. BARLY PERCEPTABLE WEAKNESS TO RIGHT ARM AND LEG NOTED WITH RESISTANCE APPLIED ONLY. HEMIPLEGIC GATE NOTED WITH NO HEAL TO TOE ROLL...PT DRAGING FEET AND TAKES TIME TO TAKE STEPS FORWARD...IMPROVING. LUNG SOUNDS CLEAR. HEART TONES REGULAR. URINARY URGENCY CONTINUES, PT MISSES URINAL IF NOT PROVIDED AND ASSISTED IMMIDATLY, IMPROVING. PT DEMONRSTRATES USE OF I.S. REACHING 2000ML X3. PHYSICAL THERAPY TO BEDSIDE. PT WORKING WITH PHYSICAL THERAPIST. NO ADDITIONAL REQUESTS OR COMPLAINTS.
--- NOTE | 2022-03-16 16:18 | NUR ---
PT HERE FOR TIA AND DECONDITIONING. PT UP WITH STAND BY ASSIST AND FWW THIS SHIFT. PT TOLERATING SOFT DIET WITH GOOD APPITITE, ENSURE PROVIDED. PT UP TO CHAIR FOR MEALS AND TO AMBULATE IN [place] X3 THIS SHIFT. PT REAMINS ON ROOM AIR, ALERT AND OREINTED, WITH REGULAR HEART TONES. NIH SCORE REMAINS AT 3 FOR MINOR RIGHT FACIAL DROOP AND MINOR RIGHT SIDED WEAKNESS WHEN RESISTANCE IS APPLIED. PT DENIES PAIN AND NAUSEA THIS SHIFT. PT VOIDING QUANTITY SUFFICIENT. PT USES CALL LIGHT AND MAKES NEEDS KNOWN.
--- NOTE | 2022-03-16 17:05 | NUR ---
THIS RN TO ROOM TO CHECK ON PT. PT FOUND IN BED AFTER PHYSICAL THERAPY. STAND BY ASSIST WITH FWW UP TO CHAIR FOR DINNER. PT DENIES PAIN AND NAUSEA. MEDICATION GIVEN. PT DENIES ADDITIONAL REQUESTS OR COMPLAINTS. CALL LIGHT WITHIN REACH.
--- NOTE | 2022-03-16 17:50 | NUR ---
DR HERMOSILLO TO BEDSIDE FOR ROUNDS. EKG (FOR TACHYCARDIA) AND STAT LABS ORDERED. EKG PERFORMED BY THIS RN AND GIVEN DIRECTLY TO DR HERMOSILLO. NO NEW ORDERS. 6ML LAB DRAW FROM LEFT FORARM USING 18 GAUGE BUTTERFLY NEEDLE. PT TOLERATED WELL. GAUZE AND COBAN APPLIED. LABS SENT PER PROTOCOL. PT UP TO STAND TO URINATE. DEPENDS WET. JOE CARE DONE. DEPENDS CHANGED. GOWN CHANGED. VITAL SIGNS STABLE, ALTHOUGH TACHYCARDIA CONTINUES. PT DENIES PAIN AND NAUSEA. NO ADDITIONAL REQUESTS OR COMPALINTS. STAND BY ASSIT WITH FWW BACK TO BED. WARM BLANKET PROVIDED. NO ADDITIONAL. NEEDS AT THIS TIME. CALL LIGHT WITHIN REACH.
--- NOTE | 2022-03-16 19:42 | NUR ---
RECEIVED REPORT FROM DAY SHIFT NURSE. PATIENT RESTING IN BE. IV STARTED PER ORDER. NO FURTHER NEEDS NOTED. CALL LIGHT WITHIN REACH. BED ALARM SET.
--- NOTE | 2022-03-16 20:40 | NUR ---
ASSESSMENT COMPLETED. PATIENT RESTING IN BED. VITALS TAKEN & RECORDED. MEDICATIONS ADMINISTERED PER ORDER. IV INFUSING WITH SCHEDULED MEDICATIONS. PATIENT DENIES ANY PAIN. FRESH ICE WATER PROVIDED. NO FURTHER NEEDS NOTED. CALL LIGHT WITHIN REACH.
--- NOTE | 2022-03-16 20:57 | NUR ---
PATIENT CALLED AND REQUESTED URINAL BE EMPTIED. EMPTIED URINAL. BROUGHT ENSURE PER PATIENT REQUEST. RECORDED INPUT AND OUTPUT. NO FURTHER NEEDS NOTED. CALL LIGHT WITHIN REACH.
--- NOTE | 2022-03-16 21:30 | NUR ---
PT CALL LIGHT ON, IV PUMP ALARMING, PT PROVIDE WITH A YEMILLO ELIDA BECK RN INFORMED OF IV PUMP
--- NOTE | 2022-03-16 21:39 | NUR ---
ADMINISTERED SECOND BAG OF MAGNESIUM, INFUSING PER ORDER. PATIENT RESTING. NO FURTHER NEEDS NOTED. CALL LIGHT WITHIN REACH.
--- NOTE | 2022-03-16 22:35 | NUR ---
IV MAGNESIUM COMPLETED INFUSING. PATIENT IS NOW SL PER ORDER. PATIENT VOIDED IN URINAL. URINAL EMPTIED. NO FURTHER NEEDS NOTED. CALL LIGHT WITHIN REACH.
--- NOTE | 2022-03-16 23:32 | NUR ---
PATIENT IN BED RESTING WITH EYES CLOSED. RR 14. NO FURTHER NEEDS NOTED. CALL LIGHT WITHIN REACH.
--- NOTE | 2022-03-17 01:11 | NUR ---
PATIENT RESTING IN BED. EMPTIED URINAL. BROUGHT ENSURE PER PATIENT'S REQUEST. NO FURTHER NEEDS NOTED. CALL LIGHT WITHIN REACH.
--- NOTE | 2022-03-17 02:19 | NUR ---
PATIENT IN BED RESTING WITH EYES CLOSED. RR 16. NO FURTHER NEEDS NOTED. CALL LIGHT WITHIN REACH.
--- NOTE | 2022-03-17 03:35 | NUR ---
PATIENT CALLED TO REQUEST ASSISTANCE W/CHANGING ATTENDS. PATIENT INCONTINENT OF STOOL. ASSISTED PATIENT TO THE RESTROOM BY 1PA W/FWW. ASSISTED PATIENT WITH JOE CARE. ATTENDS REPLACED. ASSISTED PATIENT TO BED. URINAL EMPTIED. ASSESSMENT COMPLETED. PATIENT DENIES PAIN. WATER REFRESHED. NO FURTHER NEEDS NOTED. CALL LIGHT WITHIN REACH.
--- NOTE | 2022-03-17 05:19 | NUR ---
PATIENT RESTING IN BED. URINAL EMPTIED. VITALS TAKEN & RECORDED. INPUT & OUTPUT RECORDED. IV FLUSHED & SL. BROUGHT ENSURE PER PATIENTS REQUEST. CALL LIGHT WITHIN REACH.
--- NOTE | 2022-03-17 05:41 | NUR ---
PATIENT CALLED AND REQUESTED ASSISTANCE TO RESTROOM. PATIENT INCONT OF STOOL IN BED. PERFORMED JOE CARE AND PLACED ATTENDS. NO FURTHER NEEDS NOTED. CALL LIGHT WITHIN REACH.
--- NOTE | 2022-03-17 06:29 | NUR ---
ASSESSMENT COMPLETED. VITALS TAKEN & RECORDED. EMPTIED URINE HAT.INPUT & OUTPUT RECORDED. ENCOURAGED CORNET EXERCISES. IV FLUSHED & SL. PATIENT DENIES PAIN. NO FURTHER NEEDS NOTED. CALL LIGHT WITHIN REACH.
--- NOTE | 2022-03-17 07:22 | NUR ---
REPORT RECEIVED FROM KEDAR HARDING. PT RESTING IN BED WITH EYES CLOSED, RESPIRATIONS EVEN AND UNLABORED. HEAD OF BED ELEVATED TO 30 DEGREES. BED RAILS UP. CALL LIGHT WITHIN REACH. PT ALLOWED TO REST.
--- NOTE | 2022-03-17 08:30 | NUR ---
Received a call from [facility]. They will be here around 9:30 to evaluate pt for placement. Updated nurses.
--- NOTE | 2022-03-17 09:12 | NUR ---
MORNING ASSESSMENT AND MEDICATION DUE. THIS RN TO ROOM. PT UP TO CHAIR, FINISHED WITH BREAKFAST. PT DENIES PAIN AND NAUSEA. IV ASSESSED. WNL. FLUSHED ADN SALINE LOCKED, NO S/S OF PHLEBITIS NOTED. PT ALERT AND ORIENTED TO ALL. MINIMAL, UNCHANGED RIGHT SIDED FACIAL DROOP. PT STRONG IN ALL EXTREMITIES. WEAKNESS NOTED TO RIGHT SIDE ONLY WHEN RESISTANCE IS APPLIED. PT IS ABLE TO PUSH AGAINST RESISTANCE IN ALL EXTREMITIES. LUNG SOUNDS CLEAR. HEART TONES REGULAR, NO TACHYCARDIA NOTED AT THIS TIME. PT REPORTS FREQUENT BOWEL MOVEMENTS LAST NIGHT, DECLINES BOWEL MEDICAITONS. PT DECLINES NICOTENE PATCH. PT DEMONSTRATES USE OF I.S. REACHIGN 1000-1500ML X5 AND CORNET USE X5. PT DENIES ADDITIONAL REQUESTS OR COMPLAINTS. CALL LIGHT WITHIN REACH.
--- NOTE | 2022-03-17 09:37 | NUR ---
PT WANTS TO SHOWER LATER TODAY AFTER HIS MEETING. WILL CHECK BACK IN AFTER MEETING.
--- NOTE | 2022-03-17 10:15 | NUR ---
Spoke with Le and Anderson from [facility]. They completed eval for Gilbert and are willing to accept this pt tomorrow. We called Kimi Prakash from [facility] to check if pt has been accepted for termite control servicer medicaid. She states evals have been completed and she is messaging Grace Flaherty to complete her documentation from next week. We then discussed transportation and I will check if pt has transport through [facility]. Pt is also in need of a walker for use at the [facility]. Kimi is also requesting I assist this pt with obtaining his bank statements. Let her know I can assist him to call.
--- NOTE | 2022-03-17 10:30 | NUR ---
OMI ARRIVED FROM [facility] TO INTERVIEW PT FOR PLACEMENT. QUESTIONS ANSWERED.
--- NOTE | 2022-03-17 11:09 | NUR ---
PT CALL LIGHT ON. PT REQUESTS ASSISTANCE TO CHANGE UNDERWARE. PT UP TO STAND WITH STAND BY ASSIST, UNDERWARE CLEAN, CHANGED. PT DENIES PAIN AND NAUSEA. PT REPORTS "IT WAS NICE" VISITING WITH PLACEMENT ANA FROM [facility]. NO ADDITIONAL REQUESTS OR COMPLAINTS. CALL LIGHT WITHIN REACH.
--- NOTE | 2022-03-17 11:55 | NUR ---
THIS RN TO ROOM TO CHECK ON PT. PT UP TO CHAIR, BACK FROM PHYSICAL THERAPY. PT REPORTS PHYSICAL THERAPY "WENT WELL." PT MILDY TACHYCARIC AFTER AMBULATION WITH HR 110-120 TAKEN APICALLY. PT DENIES PAIN AND NAUSEA, DENIES CHEST PAIN SHORTNESS OF BREATH, OR DIZZINESS. PT ON PHONE WITH FAMILY. NO ADDITIONAL NEEDS AT THIS TIME. CALL LIGHT WITHIN REACH.
--- NOTE | 2022-03-17 12:48 | NUR ---
THIS RN TO ROOM TO CHECK ON PT. PT UP TO CHAIR. FINISHED WITH LUNCH. PT DENIES PAIN AND NASUEA. PT SORTING THROUGH BELONGINGS LOOK FOR HIS DEBET CARD AND GLASSES. PT FOUND GLASSESS. NO ADDITONAL REQUESTS OR COMPLAINTS. CALL LIGHT WITHIN REACH.
--- NOTE | 2022-03-17 12:50 | NUR ---
To pts room and assisted him to call [employer] where is SSI is depositied. Per their recording they do not give any info out over the phone and either an email or the phone number on the pts card must be called. Pt states he does not know where his card is. I asked if it is his belongings Grace Flaherty brought from his motel. He is unsure. I gave him the bag and set it on a chair for him to go through. I called Kimi Prakash and she states pt has to figure this out as he will be required to pay [facility] [place] a partial payment each month. Attempted to contact [facility] transport and I held for 20 minute and gave up. Will try again later.
--- NOTE | 2022-03-17 13:21 | NUR ---
REPORT GIVEN TO KEDAR JAIMES, WHO IS ASSUMING CARE OF PT.
--- NOTE | 2022-03-17 14:20 | NUR ---
Spoke with ELDON Moreno. She was able to assist pt with his bank and to get bank statements required by [facility]. She was also able to assist pt with setting up and on line banking and ordering a replacement bank card he lost.
--- NOTE | 2022-03-17 15:09 | NUR ---
Spoke with [place] from [facility]. Pt does qualify for transport, but she states they are very backed up. I held while she searched for transport, she later returned to the call and asked if she would be able to call me back. I was requesting transport for , anytime, as [place], or myself have heard from [facility] if they will ok payment for this pt. I do not think he will be able to dc tomorrow, as we do not have confirmation and it is no after 1500.
--- NOTE | 2022-03-17 18:11 | NUR ---
Faxed H&P, face sheet with new address, progress notes, rx to [facility] requesting a walker.
--- NOTE | 2022-03-17 19:00 | NUR ---
PATIENT IN BED WATCHING TV. VITALS AND I&O'S CHARTED. CALL LIGHT IN REACH. NO FURTHER NEEDS AT THIS TIME.
--- NOTE | 2022-03-17 19:32 | NUR ---
[facility] PATIENT AWAKE IN BED. NO FURTHER NEEDS NOTED. CALL LIGHT WITHIN REACH.
--- NOTE | 2022-03-17 20:30 | NUR ---
ASSESSMENT COMPLETED. VITALS TAKEN & RECORDED. URINAL EMPTIED. INPUT & OUTPUT RECORDED. MEDICATIONS ADMINISTERED PER ORDERS. IV FLUSHED & SL. IS EXERCISES COMPLETED. BROUGHT JELLO PER PATIENT REQUEST. NO FURTHER NEEDS NOTED. CALL LIGHT WITHIN REACH.
--- NOTE | 2022-03-17 22:39 | NUR ---
PATIENT CALLED TO REQUEST ENSURE. URINAL EMPTIED. ENSURE BROUGHT TO PATIENT. NO FURTHER NEEDS NOTED. CALL LIGHT WITHIN REACH.
--- NOTE | 2022-03-18 00:41 | NUR ---
PATIENT AWAKE IN BED. EMPTIED URINAL. BROUGHT ICECREAM PER PATIENT'S REQUEST. NO FURTHER NEEDS NOTED. CALL LIGHT WITHIN REACH.
--- NOTE | 2022-03-18 01:57 | NUR ---
PATIENT RESTING IN BED WITH EYES CLOSED. RR 14. NO FURTHER NEEDS NOTED. CALL LIGHT WITHIN REACH.
--- NOTE | 2022-03-18 03:05 | NUR ---
PATIENT RESTING IN BED. RR 12. NO FURTHER NEEDS NOTED. CALL LIGHT WITHIN REACH.
--- NOTE | 2022-03-18 06:02 | NUR ---
ASSESSMENT COMPLETED. VITALS TAKEN & RECORDED. I&O'S RECORDED. IV FLUSHED AND SL. BROUGHT PATIENT ENSURE PER PATIENT REQUEST. PATIENT DENIES PAIN. NO FURTHER NEEDS NOTED. CALL LIGHT WITHIN REACH. EMPTIED URINAL.
--- NOTE | 2022-03-18 07:20 | NUR ---
Report recieved from Angela THACKER. Pt resting in bed, breathing unlabored and even. Will continue plan of care.
--- NOTE | 2022-03-18 07:20 | NUR ---
This RN present with SNHarrison, with all patient interactions and medications.
--- NOTE | 2022-03-18 08:32 | NUR ---
IN PT ROOM TO ADMINISTER SCHEDULED MEDICATIONS. PT SITTING IN RECLINER INTERACTING WITH STAFF. ALERT AND ORIENTED. HRR. LSC. PT SKIN WARM AND DRY. IV WNL. PT MOVING GOOD, 1PA FWW, WEAKNESS IMPROVING. DISCUSSED PLAN OF TAKING A SHOWER TODAY. PT STATES NO FURTHER NEEDS, CALL LIGHT IN REACH.
--- NOTE | 2022-03-18 09:16 | NUR ---
CHAPIN IS UP IN [place]. I&O AND VITALS CHARTED. CALL LIGHT WITHIN REACH NO FURTHER TASKS AT THIS TIME
--- NOTE | 2022-03-18 09:45 | NUR ---
Called and spoke with Kimi Prakash to check if pt has medicaid payment for [facility] [employer]. She states documentation has not been completed. She requests I call Angi Flaherty. Called and left a message on Samantha's cell and office phone.
--- NOTE | 2022-03-18 10:45 | NUR ---
IN PT ROOM TO COVER IV, FOR SHOWER. CHIO FROM OT HELPING PT WITH SHOWER. NO FURTHER NEEDS AT THIS TIME.
--- NOTE | 2022-03-18 12:20 | NUR ---
Pt provided an ENSURE, pt talking with Pastor Dubois. pt denies further needs at this time. Will continue plan of care.
--- NOTE | 2022-03-18 12:50 | NUR ---
PT SITTING IN CHAIR, LIFTED HIS R.ARM AND WAVED ME IN. ABLE TODAY TO RAISE HIS R.ARM ABOVE HIS HEAD TODAY-GREAT IMPROVEMENT! HAD GOOD VISIT, ROXANEEH IS CLEARER. PT SHARED SOME OF HIS FLORENCIO JOURNEY-REQUESTED PRAYER. WILL FOLLOW
--- NOTE | 2022-03-18 14:06 | NUR ---
Rounded on pt, pt currently working with PT. will continue plan of care.
--- NOTE | 2022-03-18 14:10 | NUR ---
Received a call from Le from [facility] and she is wanting to know if I have heard from [facility]. Updated I called, but have no new information. Let her know I will call Angi again in the am and she is suppose to be working tomorrow. We discussed pt has transportation set for 1 pm, I will cancel tomorrow if we do not receive auth.
--- NOTE | 2022-03-18 14:47 | NUR ---
CHAPIN IS UP IN CHAIR. I&O AND VITALS CHARTED. CALL LIGHT WITHIN REACH, NO FURTHER TASKS AT THIS TIME
--- NOTE | 2022-03-18 15:32 | NUR ---
PT RESTING IN RECLINER USING PHONE. ASSESSMENT COMPLETE. PT STRENGTH ON RIGHT SIDE, IMPROVING. HRR, LSC, VQS, AND IV WNL. PT STATES "FEELING STRONGER". PT SKIN WARM AND DRY. BOWEL TONES ACTIVE. PT REQUESTS AN ENSURE AND STATES NO FURTHER NEEDS. CALL LIGHT IN REACH. WILL CONTINUE TO MONITOR.
--- NOTE | 2022-03-18 17:23 | NUR ---
Pt talking on phone, scheduled medications given. pt denies further needs. call light in reach.
--- NOTE | 2022-03-18 18:31 | NUR ---
Pt transferred to bed with 1PA SBA and FWW. Gait markedly improved from admission. Pt cheerful and states no needs. All belongings within reach. Call light in reach.
--- NOTE | 2022-03-18 18:33 | NUR ---
Pt had good day- on room air, worked with physical therapy, able to transfer self from bed to chair/bsc as needed. A+O, LSC, HRR. Bowel tones active. CMS intact. Strength 4/5 in affected R side. Afebrile. Calls appropriately. Awaiting discharge placement.
--- NOTE | 2022-03-18 19:07 | EKG ---
[facility] [address] [place], [place] [address] Signed Atrial tachycardia Left axis deviation Inferior infarct (cited on or before 27-FEB-2022) Abnormal ECG When compared with ECG of 05-MAR-2022 09:02, No significant change was found Confirmed by NICOLE HERMOSILLO MD ([id number]) on 03/18/2022 7:07:41 PM Electronically Signed By: NICOLE HERMOSILLO MD 03/18/22 1907 PATIENT NAME: RUBIO CHILDRESS Electrocardiogram DATE OF : 61 PHYSICIAN: NICOLE HERMOSILLO MD REPORT #: [id number] REPORT IS CONFIDENTIAL AND NOT TO BE RELEASED WITHOUT AUTHORIZATION
--- NOTE | 2022-03-18 20:30 | NUR ---
PT ON ROOM AIR, TACHY AT 115, DENIES SOB , WA UP TO SIDE OF BED AND VOIDED, USED URINAL, BACK TO BED, NO SOB. COOP WITH ASSESSMENT. LUNGS CLEAR, ON ROOM AIR. 1PA, SLID OUT OF BED W/O HELP, STOOL BY WITH ALMOST NO HELP AND PLACED SELF BACK WITH NO HELP, SLIGHT UNSTEADINESS STILL PRESENT. COOP. BED ALRM ON FOR FALL SAFETY, ON THICKENED LIQUID PER ASPIRATION PRECAUTIONS. USES CALL LIGHT, HOB ELEVATED TO COMOFR, NO C/O PAIN. SENNA AND MIRALAX HELD, LOOSE STOOLS. PT AWARE.
--- NOTE | 2022-03-18 22:10 | NUR ---
resting, eyes closed, no distress, call light and fluids at hands reach and bed alarm on
--- NOTE | 2022-03-18 23:22 | NUR ---
USED URINAL, CALLED, VOIDED CLEAR YELLOW URINE.
--- NOTE | 2022-03-19 00:51 | NUR ---
PT RESTING, ON ROOM AIR, EYES CLOSED, NO DISTRESS
--- NOTE | 2022-03-19 04:26 | NUR ---
Pt has slept most of this shift. On room air, no c/o CP or SOB, clear lungs, had two small bm's. uses urinal, voiding QS uses urinal, more independent speech much cleared and understandable, improved R sided residual weakness requiring minimum of assist, tolerating liquids well, had 2 ensures, tolerated well. Miralax and Senna held, having very soft bm's. uses call light. Working with PT/OT/ST, fall and aspiration precautions in place
--- NOTE | 2022-03-19 05:40 | NUR ---
Patient called because he wanted an Ensure. After getting him the Ensure his a.m. vitals were taken and he did not have any more needs at this time.
--- NOTE | 2022-03-19 07:18 | NUR ---
Report from Abby De Dios RN. Patient awake, alert and oriented, sitting up in bed at this time. Continent of urinal. Denies other needs at this time.
--- NOTE | 2022-03-19 09:00 | NUR ---
Called and left a message for Angi Flaherty, requesting if pt has been approved for placement.
--- NOTE | 2022-03-19 10:01 | NUR ---
Patient up in recliner. Assessment completed. Denies pain at this time. AM medications administered, takes without difficulty. Denies other needs at this time. Call light in reach.
--- NOTE | 2022-03-19 11:30 | NUR ---
Spoke with Kimi Prakash at [facility], she states the assessment has not been completed yet. They also have questions about [employer] for this pt. I spoke with pt and he denies any accounts at [place].
--- NOTE | 2022-03-19 11:50 | NUR ---
Received a call from Le, she states she has attempted several times to call [facility]. They have not received approval. She states they cannot accept this pt until they receive auth. Understanding stated and I will cancel transport through [facility]. We will try again beginning of next week to place this pt. I will schedule transport for Wednesday.
--- NOTE | 2022-03-19 13:27 | NUR ---
CHAPIN IS SITTING UP IN CHAIR I&O AND VITALS CHARTED. CALL LIGHT WITHIN REACH. NO FURTHER TASKS AT THIS TIME
--- NOTE | 2022-03-19 14:57 | NUR ---
PT ASLEEP, DID NOT DISTURB. MAINTENANCE AND ENGINEERING MANAGER KRYSTAL TO INFORM PT I WAS BY. WILL FOLLOW
--- NOTE | 2022-03-19 17:02 | NUR ---
Continues to work with PT. Ambulated in hallway twice today. Up in recliner during the day. Continent of bowel and bladder. Alert and oriented, continues with right sided weakness, ataxia and slurred speech. Continue to attempt placement.
--- NOTE | 2022-03-19 17:34 | NUR ---
CHAPIN WAS UP IN CHAIR AND WANTED TO GO BACK TO BED. TRANSFERED TO BED. I&O AND VITALS CHARTED CALL LIGHT WITHIN REACH. NO FURTHER TASKS AT THIS TIME
--- NOTE | 2022-03-19 19:57 | NUR ---
Resting, no distress, on room air, eyes closed, call light at hands reach
--- NOTE | 2022-03-19 20:17 | NUR ---
PT IN BED, ROOM AIR, LUNGS CLEAR BILAT, NO COUGH. HOB ELEVATED, ON THICKENED LIQUIDS, TOLERATED WELL, DENIES C/O CP OR SOB. VOIDING SMALL AMOUNTS YELLOW URINE USING URINAL. SL LFA PATENT. COOP WITH ASSESSMENT. BED ALARM ON. FALL AND ASPIRATION PRECAUTIONS IN PLACE
--- NOTE | 2022-03-19 22:07 | NUR ---
PROVIDED STRAWBERRY ENSURE, PT DENIES FURTHER NEEDS. CALL LIGHT IS CLOSE.
--- NOTE | 2022-03-19 23:05 | NUR ---
resating, eyes closed, on room air, no distress, call light and thickened liquids at bedside. bed alarm on.
--- NOTE | 2022-03-19 23:45 | NUR ---
Pt resating, eyes closed, no distress, on room air. voids small amonts yellow urine, uses urinal.
--- NOTE | 2022-03-20 03:55 | NUR ---
voiding QS urine, uses urinal, tolerating ensures drinks, eyes closed, no distress, turns and repositions self in bed, call light and thickened fluids at hands reach
--- NOTE | 2022-03-20 05:01 | NUR ---
Pt has slept all this shift, on room air, clear lungs, no coaugh, no c/o SOB or CP, tachy at times, specially with exertion. Has tolerated soft diet, no c/o pral problems, on thickened liquids, tolerating well, has requested and likes to drink Ensures with thickening. aspiration precautions in place. Much improved R sided weakness, strong respiratory care instructor present. improved much clearer speech and mentation, follows instructions and conversations. turns and repositions self in bed.voiding QS, had small bm at begining of shift. uses call light. Waiting for placement.
--- NOTE | 2022-03-20 07:40 | NUR ---
Patient resting in bed, eyes closed, respirations even and non labored. Patient has no notable distress. Personal supplies and call light within reach.
--- NOTE | 2022-03-20 08:22 | NUR ---
wilmer is up in chair. am cares done. call light within reach. no further tasks at this time.
--- NOTE | 2022-03-20 09:09 | NUR ---
PAITENT WAS UP AND WALKED TO THE BATHROOM. BACK IN CHAIR. I&O AND VS CHARTED. CALL LIGHT WITHIN REACH. NO FURTHER TASKS AT THIS TIME
--- NOTE | 2022-03-20 11:00 | NUR ---
Kimi Prakash from [facility] here. In there record search for Bank Statements they found pt did have a bank account at [employer] several years ago. Account has a negative balance, but they must have this statement from the bank. Kimi and I went to pts room and assisted him to call the bank. We were transferred to a call center who stated they could not help us, I asked for her account supervisor and was put through to Poli. He states we need to fax a letter with Joe signature and they will fax the statements to whatever number we give. Obtained their fax number for Poli [phone] and faxed the following letter. March 20, [address] [employer] [address] [place], [place] [address] To Whom it may concern: I spoke with Poli from your call center this morning. I am a Injection Mold Tooling Technician at [facility] in [facility] [phone]. I am working with [employer] [facility] [employer] to help one of your clients Gilbert David. We are requesting his bank statements to be faxed to the [facility] [employer] [facility] [employer] [facility] [employer], [address] [place] [address]. Phone number [phone] Fax . Please see Gilbert s signature, as requested, below. Please keep in mind Gilbert recently suffered a stroke and has difficulty writing. I have also included his bank account information , SS#, and Date of . Please see the second page. If you require further information, please contact me by phone. Sincerely, Fernanda Tuttle Injection Mold Tooling Technician, Enterprise Systems Administrator [facility] [address] [place], [place] [address] Gilbert Frankie Letter was signed by Gilbert and faxed to Poli.
--- NOTE | 2022-03-20 11:28 | NUR ---
Patient up to bathrrom, x1 large bowel movement noted. Patient denies pain at this time. Patient to work with physical therapy at this time.
--- NOTE | 2022-03-20 12:08 | NUR ---
PT UP, WORKING WITH Chet ELI IN [facility]. GAVE ENCOURAGEMENT, PT INTENT ON HIS WORK. WILL FOLLOW
--- NOTE | 2022-03-20 14:18 | NUR ---
Patient working with physical therapy at this time. Patient has no notable distress.
--- NOTE | 2022-03-20 14:55 | NUR ---
Paitent sitting up in bed watching tv. i&o and vitals charted. call light within reach no further tasks at this time.
--- NOTE | 2022-03-20 15:51 | NUR ---
Received a call from [facility]. Updated pt remains here, but we are closer to his moving to [facility] hopefully next week.
--- NOTE | 2022-03-20 16:50 | NUR ---
Called Kimi Prakash. She states they only received the face sheet from [employer]. I refaxed and asked if the bank would please refax to [employer].
--- NOTE | 2022-03-20 17:37 | NUR ---
RECD. REPORT FROM HODAN THACKER, ASSUMED PT. CARE, FAMILY AT BEDSIDE, PT. RESTING IN BED CONVERSING WITH FAMILY MEMBER, NO COMPLAINTS
--- NOTE | 2022-03-20 17:41 | NUR ---
PT IS SITTING UP IN BED VISITING WITH DAUGHTER. I&O AND VS CHARTED. CALL LIGHT WITHIN REACH, NO FURTHER TASKS AT THIS TIME.
--- NOTE | 2022-03-20 19:20 | NUR ---
SHIFT REPORT RECEIVED FROM DAYSHIFT RN ANIA AT BEDSIDE, pt AWAKE AND RESTING IN BED. ON RA, RR EVEN AND UNLABORED. NO DISTRESS NOTED. CALL LIGHT IN REACH.
--- NOTE | 2022-03-20 20:30 | NUR ---
IN TO GET VITALS, URINAL EMPTIED, ENSURE PROVIDED, NO FURTHER NEEDS AT THIS TIME
--- NOTE | 2022-03-20 20:51 | NUR ---
ASSESSMENT COMPLETE, SCHEDULED MEDS GIVEN. pt REFUSED BOWEL MEDS, HAD BM TODAY. VSS, I&O'S COMPLETES. NO ISSUES SWALLOWING NOTED. pt DENIES PAIN AND NAUSEA, IV SITE WNL AND FLUSHES EASILY. CALL LIGHT IN REACH.
--- NOTE | 2022-03-20 23:45 | NUR ---
pt AWAKE AND RESTING IN BED. ON RA, RR EVEN AND UNLABORED. NO DISTRESS NOTED. CALL LIGHT IN REACH.
--- NOTE | 2022-03-21 02:03 | NUR ---
ROUNDED ON pt, pt AWAKE AND RESTING IN BED. REMAINS ON RA, RR EVEN AND UNLABORED. CALL LIGHT IN REACH. NO NEEDS OR CONCERNS VERBALIZED, WILL CONTINUE TO MONITOR.
--- NOTE | 2022-03-21 04:09 | NUR ---
pt RESTING IN BED, EYES CLOSED. RR EVEN AND UNLABORED, NO DISTRESS NOTED. pt ON HIS RIGHT SIDE. CALL LIGHT IN REACH.
--- NOTE | 2022-03-21 05:00 | NUR ---
ASSESSMENT COMPLETE, NO ACUTE CHANGES. VSS AND I&O'S COMPLETE. CALL LIGHT IN REACH.
--- NOTE | 2022-03-21 07:40 | NUR ---
Patient awake in bed, no distress. Patient denies pain and or needs at this time. Personal supplies and call light within reach.
--- NOTE | 2022-03-21 08:44 | NUR ---
Patient sitting up in chair watching tv, no distress. Patient reports he slept well last night. Patient denies pain. Personal supplies and call light within reach.
--- NOTE | 2022-03-21 12:38 | NUR ---
Patient sitting up in chair, no distress. Pt tolerated 100% of lunch. Patient denies pain. Right upper/lower exts' appear to be getting stronger.
--- NOTE | 2022-03-21 16:35 | NUR ---
Patient in chair watching tv, no distress. Patient reports he is doing well this afternoon, no needs. Personal supplies and call light within reach.
--- NOTE | 2022-03-21 19:10 | NUR ---
SHIFT REPORT RECEIVED FROM DAYSHIFT KEDAR PETTIT AT BEDSIDE. pt AWAKE AND RESTING IN BED. DENIES NEEDS OR CONCERNS. CALL LIGHT IN REACH.
--- NOTE | 2022-03-21 20:15 | NUR ---
ASSESSMENT COMPLETE, SCHEDULED CARDIAC MEDICATION GIVEN (SEE EMAR). NO ISSUES SWALLOWING NOTED. IV SITE DC'D, OKAY PER MD ORDERS. CATHETER TIP INTACT. pt DENIES PAIN AND NAUSEA. CMS INTACT, pt DENIES NUMBNESS AND TINGLING. RIGHT SIDE STRENGTH CONTINUES TO IMPROVE, WORKING WITH PT. pt LEFT AWAKE AND RESTING IN BED, ENJOYING STRAWBERRY ENSURE. CALL LIGHT IN REACH.
--- NOTE | 2022-03-21 23:30 | NUR ---
rounded on pt, pt resting quietly in bed with eyes closed. rr even and unlabored, call light in reach.
--- NOTE | 2022-03-22 01:24 | NUR ---
pt CONTINUES TO REST IN BED WITH EYES CLOSED. RR EVEN AND UNLABORED. NO DSITRESS NOTED. CALL LIGHT IN REACH.
--- NOTE | 2022-03-22 02:22 | NUR ---
pt RESTING IN BED WITH EYES CLOSED. CURRENTLY RESTING ON HIS BACK WITH HOB ELEVATED, ON RA. RR EVEN AND UNLABORED, NO DISTRESS NOTED. CALL LIGHT IN REACH.
--- NOTE | 2022-03-22 03:45 | NUR ---
pt RESTING IN BED WITH EYES CLOSED, RR EVEN AND UNLABORED. NO DISTRESS NOTED. CALL LIGHT IN REACH.
--- NOTE | 2022-03-22 05:39 | NUR ---
ASSESSMENT COMPLETE, NO ACUTE CHANGES. pt AWOKE TO VOICE. VSS AND I&O'S COMPLETE. pt DENIES PAIN AND NAUSEA. NEW ENSURE PROVIDED, BED ALARM ON FOR SAFETY. CALL LIGHT IN REACH. NO FURTHER NEEDS.
--- NOTE | 2022-03-22 07:45 | NUR ---
Patient in bed resting, eyes closed, respirations even and non labored. Patient has no distress. Personal supplies and call light within reach.
--- NOTE | 2022-03-22 13:00 | NUR ---
Patient up in chair eating lunch, no distress. Patient denies pain at this time. Fresh water provided. No current needs.
--- NOTE | 2022-03-22 16:30 | NUR ---
Patient in bed at this time, no distress. Patient denies pain at this time. Personal supplies and call light within reach.
--- NOTE | 2022-03-22 18:22 | NUR ---
Patient in bed at this time, no distress. Patient tolerated dinner well. No reported pain today. No current needs. Personal supplies and call light within reach.
--- NOTE | 2022-03-22 19:05 | NUR ---
SHIFT REPORT RECEIVED FROM DAYSHIFT KEDAR PETTIT AT BEDSIDE, pt AWAKE AND RESTING IN BED. ON RA, RR EVEN AND UNLABORED. NO DISTRESS NOTED, STRAWBERRY ENSURE PROVIDED. CALL LIGHT IN REACH.
--- NOTE | 2022-03-22 20:40 | NUR ---
ASSESSMENT COMPLETE, SCHEDULED MEDS GIVEN (SEE EMAR). VSS, I&O'S COMPLETE. pt DENIES PAIN OR NAUSEA. CMS INTACT, pt DENIES NUMBNESS AND TINGLING. NO ADDITIONAL NEEDS OR CONCERNS. ENSURE PROVIDED. CALL LIGHT IN REACH.
--- NOTE | 2022-03-22 23:26 | NUR ---
ROUNDED ON pt, pt AWAKE AND RESTING IN BED, GAVE A THUMBS UP SIGN, DENIES NEEDS OR CONCERNS. CALL LIGHT IN REACH.
--- NOTE | 2022-03-23 02:50 | NUR ---
pt RESTING IN BED ON RA, RR EVEN AND UNLABORED. NO DISTRESS NOTED. CALL LIGHT IN REACH. WILL CONTINUE TO MONITOR.
--- NOTE | 2022-03-23 06:49 | NUR ---
assessment complete, no acute changes. pt awake and resting in bed, denies needs or concerns. vss and i&o's complete. call light in reach.
--- NOTE | 2022-03-23 07:00 | NUR ---
In pt. room to recieve report from Buffy THACKER. Pt awake and interacting with staff. no needs at this time. call light in reach.
--- NOTE | 2022-03-23 08:22 | NUR ---
This RN supervising SN Harrison Brizuela with all patient interactions, medications and assessments
--- NOTE | 2022-03-23 08:44 | NUR ---
In pt room to administer scheduled pt medications. assessment complete, A+O, HRR, LSC, Active bowel tones. strength imporving. CMS intact. skin warm and dry. Pt suddenly has approx. 350 ml of emesis. pt does not have nausea, states "it must've been breakfast". Pt cleaned, gown changed. held PO meds at this time. Will continue to monitor.
--- NOTE | 2022-03-23 09:14 | NUR ---
In room to reassess pt, who is still experiencing nausea, meds held. Pharmacy notified and LUCILA webber ordered. pt provided warm blanket, call light in reach.
--- NOTE | 2022-03-23 09:40 | NUR ---
Administered LUCILA webber pt resting in chair. will continue to monitor. call light in reach.
--- NOTE | 2022-03-23 09:57 | NUR ---
SET UP BR FOR PT SHOWER, PT WANTS TO NAP FOR A WHILE BEFORE HE SHOWERS
--- NOTE | 2022-03-23 10:15 | NUR ---
Pt reassessed, states nausea relieved able to take scheduled PO meds, administered. Emesis bag at bedside, call light in reach.
--- NOTE | 2022-03-23 12:20 | NUR ---
Answered pt call light, pt states "feeling sick", emesis bag provided. Pt reports "the food is making him sick". Pt ate 75% of lunch. Pt denies further needs at this time. will continue to monitor.
--- NOTE | 2022-03-23 12:59 | NUR ---
PT SITTING IN CHAIR-ALERT, ORIENTED AND RAISES HIS F. ARM HIGH ABOVE HIS HEAD TO GREET ME. GREAT TO SEE, FEELS GOOOD WITH HIS PROGRESS. THANKED ME FOR COMING BY AND SHOOK HANDS WITH BOTH HANDS! PT SEEMS TO BE WORKING TO IMPROVE. GAVE BLESSING AND WILL FOLLOW
--- NOTE | 2022-03-23 13:20 | NUR ---
Reassesed pt for nausea. pt states feeling sick from lunch but denies need for nausea medication. call light in reach, emesis bag provided. no further needs at this time, will continue to monitor.
--- NOTE | 2022-03-23 13:30 | NUR ---
Called and spoke with Kimi Prakash at [facility]. Assessment has not been completed and they have not received the statement from [employer]. I'll call [employer] again. She thinks Angi will be in tomorrow and complete pts assessment. In and spoke with Gilbert. States he is nauseated today and did not tolerate his lunch. Let him know I am cancelling transport for tomorrow as I do not believe we will get the go ahead from [facility]. Called [employer] in [place] and asked if I could speak with her call center. I updated what had happened on Wednesday and she states she can help, she will print the statement and fax to [facility] Aging and Disability. I gave her the fax number. She states this acct is from 2017 and has been written off. I let her know they are still requiring a statement. She states she will fax.
--- NOTE | 2022-03-23 15:30 | NUR ---
Received a call from Kimi Prakash and she states they received the bank statements for [employer]. Let her know I will cancel transport for this pt for tomorrow. She requested I wait and call Angi in the morning to see if the assessment will be completed. Nancy will be in at 7:30 and I will all her. I then received a call from [facility] transport, the company transporting does not have a wc. Let them know, I will let them use our wc, if they agree to return it. Chely from [facility] will call and confirm.
--- NOTE | 2022-03-23 15:34 | NUR ---
In room to administer scheduled protonix. pt states "feeling nauseous". warm blanket provided, emesis bag and call light in reach. will continue to monitor.
--- NOTE | 2022-03-23 17:27 | NUR ---
Scheduled meds administered. pt declined dinner and requested a soda. pt assisted back to bed, SBA, FWW. Pt interacting with staff, still experiencing nausea. pt denies further needs, call light in reach.
--- NOTE | 2022-03-23 18:47 | NUR ---
ASSISTED PT TO BATHROOM AND BACK TO BED, 1PA FWW. PERICARE DONE. PT RESTING IN BED, CALL LIGHT WITHIN REACH, NO FURTHER ASSISTANCE NEEDED AT THIS TIME.
--- NOTE | 2022-03-23 19:52 | NUR ---
RECIEVED REPORT FROM STUDENT NURSE BEULAH. PATIENT IS ALERT AND ORIENTED. BREATHING IS EVEN AND UNLABORED. NO NEEDS VOICED AT THIS TIME. CALL LIGHT IS WITHING REACH.
--- NOTE | 2022-03-23 22:24 | NUR ---
PATIENT ALERT AND ORIENTED. BREATHING EVEN AND UNLABORED. ASSESSMENT COMPLETE. VSS. PATIENT DENIES PAIN OR NAUSEA. LUNG SOUNDS ARE CLEAR. NO OTHER NEEDS VOICED AT THIS TIME. CALL LIGHT WITHIN REACH.
--- NOTE | 2022-03-23 23:51 | NUR ---
CHECKED IN ON PATIENT. BREATHING EVEN AND UNLABORED. PATIENT IS RESTING WITH EYES CLOSED. CALL LIGHT WITHIN REACH.
--- NOTE | 2022-03-24 01:59 | NUR ---
CHECKED ON PATIENT. BREATHING IS EVEN AND UNLABORED. PATIENT RESTING WITH EYES CLOSED AND LIGHTS OFF. CALL LIGHT WITHIN REACH.
--- NOTE | 2022-03-24 04:05 | NUR ---
CHECKED ON PATIENT. PATIENT RESTING IN BED WITH EYES CLOSED. BREATHING IS EVEN AND UNLABORED. CALL LIGHT WITHIN REACH.
--- NOTE | 2022-03-24 06:38 | NUR ---
CHECKED ON PATIENT. ASSESSMENT COMPLETE. VSS. PATIENT DENIES NAUSEA OR PAIN. DUMPED URINAL. PROVIDED ICE WATER. NO OTHER NEEDS VOICED AT THIS TIME. CALL LIGHT WITHIN REACH.
--- NOTE | 2022-03-24 06:40 | NUR ---
PATIENT RESTED THROUGHOUT THE NIGHT BUT WAS ALERT AND ORIENTED DURING ASSESSMENTS. BREATHING EVEN AND UNLABORED. PATIENT DENIED NAUSEA OR PAIN. LUNG SOUND CLEAR. PATIENT HAS SLIGHT RIGHT ARM WEAKNESS THIS MORNING. VSS. PATIENT USING URINAL. PATIENTS DENTURES ARE IN CUP AT BEDSIDE. NO OTHER NEEDS VOICED AT THIS TIME. CALL LIGHT WITHIN REACH.
--- NOTE | 2022-03-24 07:05 | NUR ---
Recieved report from Farrah ALLEN and Joleen THACKER. Pt resting in bed, no pain or nausea, or other needs at this time. Call light in reach.
--- NOTE | 2022-03-24 08:07 | NUR ---
PT REFUSED TO GET OOB FOR MEAL THIS MORNING. WILL TRY AGAIN CLOSER TO MEAL TIME.
--- NOTE | 2022-03-24 08:35 | NUR ---
In pt room to administer PRN SL Zofran. pt states feeling nauseated. pt requests a sprite, provided. PO meds held at this time. will continue to monitor.
--- NOTE | 2022-03-24 09:00 | NUR ---
In pt room to reassess nausea. Pt vomited 75ml of yellow emisis. pt states not feeling well and declined PO medications other than Protonix. pt able to keep medication down. Will continue to monitor. call light in reach.
--- NOTE | 2022-03-24 09:30 | NUR ---
Updated staff in 929 meeting. Pt will transport to [facility] at 11:00 today per [employer] through [facility]. Orders and rx will need to be completed and I will send in an evelope to the [facility]. I received a call from Grace Flaherty from [facility] and all is in order. She will notify the AF.
--- NOTE | 2022-03-24 10:30 | NUR ---
In room to administer scheduled Reglan. Pt belongings packed, pt dressed. VSS, RA, discharge NIH scale preformed, score 0. no futher needs at this time.
[2022-03-24] MEDS ORDERED: TAMSULOSIN HCL0.4 MG PO (10:33)
[2022-03-24] MEDS ORDERED: LO-DOSE ASPIRIN81 MG PO (10:33)
[2022-03-24] MEDS ORDERED: NICOTINE1 EAC2 TD (10:33)
[2022-03-24] MEDS ORDERED: NICOTINE LOZENGE4 MG BUCCAL (10:33)
[2022-03-24] MEDS ORDERED: LIPITOR40 MG PO (10:33)
[2022-03-24] MEDS ORDERED: METOPROLOL SUC100 MG PO (10:33)
[2022-03-24] MEDS ORDERED: HEALTHYLAX17 GM PO (10:34)
[2022-03-24] MEDS ORDERED: STIMULANT LAXA1 EACH PO (10:34)
[2022-03-24] MEDS ORDERED: ZOLOFT50 MG PO (10:34)
[2022-03-24] MEDS ORDERED: ACETAMINOPHEN500 MG PO (10:34)
[2022-03-24] MEDS ORDERED: MAG-OXIDE400 MG PO (10:34)
[2022-03-24] MEDS ORDERED: ONDANSETRON ODT4 MG SL (10:35)
[2022-03-24] MEDS ORDERED: PANTOPRAZOLE SO40 MG PO (10:35)
[2022-03-24] MEDS ORDERED: ALLOPURINOL100 MG PO (10:35)
--- NOTE | 2022-03-24 11:10 | NUR ---
Received a call from staff and transport has not arrived. Called [facility] and they state all was arranged last night with [employer]. She attempted to call while I was on the phone. She gave me the number and I called and was able to reach. They state their milk wagon driver is on the way and will arrive around 11:40.
--- NOTE | 2022-03-24 11:47 | NUR ---
van picks up patient.
--- NOTE | 2022-03-24 14:14 | NUR ---
CONNECTED WITH PT HE WAS BEING WHEELED OUT IN FOR DC. HAD PT RAISE HIS R ARM AND WAVE. BIG SMILE AND HE THANKED ME FOR VISITING. GAVE BLESSING AND PT ENCOURAGEMENT.
--- NOTE | 2022-03-24 16:00 | NUR ---
Recieved a call from Le and she asks for insurance numbers as she needs to pick and shovel man pts meds and does not have the face sheet with her. Numbers given, she also requests the nicotine patches to be dcd as medicaid will not cover patches and lozenges. Pt prefers the last. Orders corrected and emailed to Le as requested.
--- NOTE | 2022-03-26 10:25 | NUR ---
Received a call from Le at [facility] with new pcp and date of appt for this pt. I have received a call from [facility] and they could not accept this pt until pt had an appt scheduled. Per Le pt will see Dr Romano at [facility] on the 10 of April at 10:00 to establish care. Noted on chart and faxed to Lupe at [facility].
== END 2022-03-24 11:00 | disposition home or self-care (01) | DRG 65 ==
LOC: ED 11:11 → MS 13:28
PROVIDERS: ADMIT Internal Medicine; ATTEND Internal Medicine
DX: I63.9 Cerebral infarction, unspecified (principal); G81.91 Hemiplegia, unspecified affecting right dominant side; G91.9 Hydrocephalus, unspecified; Z20.822 Contact with and (suspected) exposure to COVID-19; I48.91 Unspecified atrial fibrillation; R29.810 Facial weakness; E79.0 Hyperuricemia without signs of inflammatory arthritis and tophaceous disease; F39 Unspecified mood [affective] disorder; R47.1 Dysarthria and anarthria; R11.2 Nausea with vomiting, unspecified; R00.0 Tachycardia, unspecified; K04.7 Periapical abscess without sinus; N40.1 Benign prostatic hyperplasia with lower urinary tract symptoms; R33.8 Other retention of urine; I10 Essential (primary) hypertension; F15.10 Other stimulant abuse, uncomplicated; F17.210 Nicotine dependence, cigarettes, uncomplicated; Z79.899 Other long term (current) drug therapy
CPT/HCPCS: 36415; 70450; 70551; 71045; 74018; 80048; 80053; 80061; 81001; 83036; 83605; 83735; 85025; 86140; 87040; 92507; 92526; 92610; 93005; 93010; 93306; 97110; 97112; 97116; 97162; 97166; 97530; 97535; 99285-25; A9270; C9803; J1650; J2405; J2543; J3475; J7121; U0003